=== PATIENT | female | born 1985 | race Caucasian/White ===

== ENCOUNTER → 2020-10-22 08:59 | Outpatient (BNVA) | payer OTHER, SELFPAY | PROVIDERS: Visit Provider Advanced Practice Midwife | DX: Z30.42 Encounter for surveillance of injectable contraceptive (principal) | CPT/HCPCS: 96372; 99211; J1050 ==

== ENCOUNTER 2020-12-04 04:44 | Emergency (ER) | payer OTHER, SELFPAY ==
[2020-12-04 04:58] VITALS: BP 151/96; PULSE 113; RESP 18; TEMP 36.9; O2SAT 100; BMI 33.0
--- NOTE | 2020-12-04 05:05 | PC.NURSE ---
Pt changed into hospital gown, assisted into POC, awaiting primary MD eval.
--- NOTE | 2020-12-04 05:19 | ED.GENADULT ---
HPI - General Adult General Chief complaint: General Medical Stated complaint: Swollen legs Time Seen by Provider: 12/04/20 05:05 Source: patient Mode of arrival: ambulatory Limitations: no limitations History of Present Illness HPI narrative: Patient comes emergency room complaining of right-sided leg swelling. Patient states she has chronic left leg swelling, she has been seen by Dr. Martinez and has been told that her condition is not vascular. Furthermore, patient is complaining of a rash that is in both upper and lower extremities, which has been present for several years and has been treated multiple times with antibiotics, but does not have a diagnosis for this rash. Patient's complaint today is increased right leg swelling, which started 1 week ago. MD complaint: Right leg swelling Related Data Home Medications Medication Instructions Recorded Confirmed clindamycin phosphate 1 % lotion 1 applic TOPICAL BID 09/09/20 10/22/20 medroxyprogesterone 150 mg/mL mg IM 09/09/20 10/22/20 intramuscular suspension mometasone 0.1 % topical ointment TOPICAL 09/09/20 10/22/20 Previous Rx's Medication Instructions Recorded medroxyprogesterone 150 mg/mL 150 mg IM Q12W 84 Days #1 ml 10/13/20 intramuscular suspension dicyclomine 10 mg capsule 10 mg PO BID 90 Days #180 cap 10/22/20 loperamide 2 mg capsule 2 mg PO TID PRN 90 Days #270 cap 10/22/20 omeprazole 40 mg capsule,delayed 40 mg PO DAILY 90 Days #90 cap 10/22/20 release cyclobenzaprine 10 mg tablet 10 mg PO BEDTIME PRN 20 Days #20 11/05/20 tab doxycycline hyclate 100 mg tablet 100 mg PO BID 10 Days #20 tab 11/05/20 Allergies Allergy/AdvReac Type Severity Reaction Status Date / Time adhesive [ADHESIVE] Allergy Intermediate RED RASH Verified 09/09/20 09:34 nickel [NICKEL] Allergy Intermediate RASH Verified 09/09/20 09:34 tramadol [TRAMADOL] Allergy Intermediate NAUSEA & Verified 09/09/20 09:34 VOMITING,RASH acetaminophen [From VICODIN] Allergy Unknown RASH Verified 09/09/20 09:34 hydrocodone [From VICODIN] Allergy Unknown RASH Verified 09/09/20 09:34 naproxen [NAPROXEN] Allergy Unknown GI Verified 10/27/20 09:34 UPSET,RASH Nickel Allergy Unknown rash Verified 09/09/20 09:34 Adhesive Allergy Unknown rash Uncoded 06/24/20 00:00 adhesive tape Allergy Unknown rash Uncoded 05/20/20 00:00 MOLD TREES WEEDS cats DOGS Allergy Unknown PER Uncoded 07/31/20 16:08 ALLERGY TESTING Mold, weeds, trees, cats, Allergy Unknown per Uncoded 05/20/20 00:00 dogs allergy testing Naproxen Allergy Unknown rash Uncoded 05/20/20 00:00 Tramadol Allergy Unknown rash Uncoded 05/20/20 00:00 vicodin Allergy Unknown rash Uncoded 05/20/20 00:00 Review of Systems Review of Systems: Constitutional : No Weight loss, No Fever, No Chills, No Night Sweats, No Fatigue, No Malaise ENT/Mouth : No Hearing loss, No Ear Pain, No Nasal Congestion, No Sinus Pain, No Hoarseness, No sore throat, No Rhinorrhea, No Swallowing Difficulty Eyes: No Eye Pain, No Swelling, No Redness, No Foreign Body, No Discharge, No Vision Changes Cardiovascular : No Chest Pain, No SOB, No Dyspnea on Exertion, No Orthopnea, No Edema, No Palpitations Respiratory : No Cough, No Sputum, No Wheezing, No Smoke Exposure, No Dyspnea Gastrointestinal : No Nausea, No Vomiting, No Diarrhea, No Constipation, No abdominal Pain, No Hematochezia, No Melena Genitourinary : no irregular bleeding, No Dysuria, No Urinary Frequency, No Hematuria, No Urinary Incontinence, No Urgency, No Flank Pain, No Urinary Flow Changes, No Hesitancy Musculoskeletal : No joint pain, No Myalgias, complaining of 1 week of right lower extremity swelling Skin : Chronic rash in upper and lower extremities Neuro : No Weakness, No Numbness, No Paresthesias, No Loss of Consciousness, No Dizziness, No Headache Psych : No Anxiety/Panic, No Depression, No SI/HI/AH/VH, No Social Issues, Heme/Lymph: No Bruising, No Bleeding,No Lymphadenopathy Endocrine : No Polyuria, No Polydipsia, No Temperature Intolerance PMFSH Past Medical History Surgical History H/O removal of cyst History of esophagogastroduodenoscopy (EGD) Hx of adenoidectomy Hx of colonoscopy Hx of sinus surgery Hx of tympanostomy Neoplasia S/P arthroscopic surgery of left knee Family History Family History Father No problems noted. Mother HTN (hypertension) Sister No problems noted. Sister No problems noted. Sister No problems noted. Sister No problems noted. Sister No problems noted. Sister No problems noted. Sister No problems noted. Daughter No problems noted. Social History Social History Alcohol intake: current Alcohol intake frequency: holidays/special occasions only Smoking Status: Former smoker Advance Directives: No Physical Exam Vital Signs: Vital Signs: Last Vital Signs Temp 98.4 F 12/04/20 04:58 Pulse 113 H 12/04/20 04:58 Resp 18 12/04/20 04:58 BP 151/96 H 12/04/20 04:58 Pulse Ox 100 12/04/20 04:58 Body Mass Index 33.0 Appearance: Alert. Oriented X3. No acute distress. Eyes: Pupils equal, round and reactive to light. ENT: Pharynx normal. Neck: Normal inspection. Neck supple. No lymph nodes noted. No crepitus CVS: Normal heart rate and rhythm. Pulses normal. Normal S1 and S2 Respiratory: No respiratory distress. Breath sounds normal. No Wheezing. No rales Abdomen: Soft and nontender. No rigidity. No distention. good BS x4 Skin: Patient has multiple small eschars in both upper and lower extremities, patient states this is part of her chronic rash. No signs of cellulitis Extremities: Complaining of chronic left lower extremity swelling, complaining of new onset right lower extremity swelling Neuro: Oriented X 3. No motor deficit. No sensory deficit. Moving all extermities. No slurred speech. Course Course Course Narrative: Patient changed her story, now states that her left leg has been normal after she saw Dr. Martinez back in August, and now it is swollen again. I discussed with the patient that we will go ahead and do an ultrasound of both legs. At this time, patient is stable, sign-out given to Dr. Velázquez. Patient's rash is chronic. Patient likely to be discharged home. TSH pending Medical Decision Making Lab Data Result diagrams: 12/04/20 05:35 12/04/20 05:35 Labs: Lab Results 12/04/20 12/04/20 Range/Units 05:35 05:35 WBC 7.5 (4.8-10.8) X10*3/uL RBC 4.64 (4.20-5.50) X10*6/uL Hgb 12.9 (12.0-16.0) g/dl Hct 39.4 (37-47) % MCV 84.9 (80-98) fL MCH 27.8 (27.0-33.0) pg MCHC 32.7 (31.0-35.0) g/dl RDW 12.2 (11.0-16.0) % Plt Count 287 (160-400) X10*3/uL MPV 10.1 (9.4-12.3) fL Immature Gran % (Auto) 0.1 (0.0-0.4) % Neut % (Auto) 59.8 (45-73) % Lymph % (Auto) 25.5 (20-40) % [place] % (Auto) 11.3 H (2-11) % Eos % (Auto) 2.8 (0-4) % Baso % (Auto) 0.5 (0-2) % Lymph # (Auto) 1.9 (1.2-4.9) X10*3/uL [place] # (Auto) 0.8 (0.1-1.2) X10*3/uL Eos # (Auto) 0.2 (0.0-0.4) X10*3/uL Baso # (Auto) 0.0 (0.0-0.2) X10*3/uL Abs Immat Gran (auto) 0.01 (0.00-0.03) X10*3/uL Absolute Neuts (auto) 4.5 (2.0-8.3) X10*3/uL Absolute Nucleated RBC 0.000 (0.0-0.012) X10*3/uL Nucleated RBC % (auto) 0.0 (0.0-0.2) /100WBC Sodium 137 (135-145) mmol/L Potassium 4.3 (3.3-5.1) mmol/l Chloride 105 (96-108) mmol/L Carbon Dioxide 21 L (22-29) mmol/L Anion Gap 15 (12-20) BUN 14 (9-16) mg/dL Creatinine 1.08 (0.5-1.4) mg/dL Estim Creat Clear Calc 72.8 Estimated GFR 58 Random Glucose 88 (60-115) mg/dL Calcium 9.2 (8.4-10.2) mg/dL Discharge Plan Discharge Clinical Impression: Swelling of lower extremity Patient Disposition: Home, Self-Care Instructions: Leg Edema (ED) Additional Instructions: Please follow-up with your primary care physician tomorrow. If you have any worsening or new symptoms, please return to the emergency room or call 911 Prescriptions: No Action medroxyprogesterone [Depo-Provera] 150 mg/mL suspension 150 mg IM Q12W 84 Days Qty: 1 RF: 0 doxycycline hyclate 100 mg tablet 100 mg PO BID 10 Days Qty: 20 RF: 0 cyclobenzaprine 10 mg tablet 10 mg PO BEDTIME PRN (Reason: muscle spasm) 20 Days Qty: 20 RF: 0 omeprazole 40 mg capsule,delayed release(DR/EC) 40 mg PO DAILY 90 Days Qty: 90 RF: 0 loperamide 2 mg capsule 2 mg PO TID PRN (Reason: loose stool) 90 Days Qty: 270 RF: 0 dicyclomine 10 mg capsule 10 mg PO BID 90 Days Qty: 180 RF: 0 medroxyprogesterone 150 mg/mL suspension IM RF: 0 clindamycin phosphate 1 % lotion 1 applic topical BID RF: 0 mometasone 0.1 % ointment topical RF: 0
[2020-12-04 05:41] LABS: Basophils Percent Auto 0.5 % (0-2); Eosinophils Absolute Auto 0.2 X10*3/uL (0.0-0.4); Eosinophils Percent Auto 2.8 % (0-4); Hematocrit 39.4 % (37-47); Hemoglobin 12.9 g/dl (12.0-16.0); Imm Gran Abs Auto 0.01 X10*3/uL (0.00-0.03); Imm Gran Pct Auto 0.1 % (0.0-0.4); Lymphocytes Absolute Auto 1.9 X10*3/uL (1.2-4.9); Lymphocytes Percent Auto 25.5 % (20-40); MANUAL DIFF FLAG NO; Mean Corpuscular HGB Conc 32.7 g/dl (31.0-35.0); Mean Corpuscular Hemoglobin 27.8 pg (27.0-33.0); Mean Corpuscular Volume 84.9 fL (80-98); Mean Platelet Volume 10.1 fL (9.4-12.3); Monocytes Absolute Auto 0.8 X10*3/uL (0.1-1.2); Monocytes Percent Auto 11.3 % (2-11); Neutrophils Absolute Auto 4.5 X10*3/uL (2.0-8.3); Neutrophils Percent Auto 59.8 % (45-73); Platelet Count 287 X10*3/uL (160-400); Red Blood Count 4.64 X10*6/uL (4.20-5.50); Red Cell Distribution Width 12.2 % (11.0-16.0); White Blood Count 7.5 X10*3/uL (4.8-10.8)
--- NOTE | 2020-12-04 05:50 | PC.NURSE ---
central supply tech at bedside obtaining labs.
[2020-12-04 06:00] VITALS: BP 110/55; PULSE 93; RESP 16; TEMP 37; O2SAT 100
[2020-12-04 06:13] LABS: Anion Gap 15 (12-20); Blood Urea Nitrogen 14 mg/dL (9-16); Calcium 9.2 mg/dL (8.4-10.2); Carbon Dioxide 21 mmol/L (22-29); Chloride 105 mmol/L (96-108); Creatinine Clr Calc Pharmacy 72.8; Estimated Glomerular Filt Rate 58; Glucose Random 88 mg/dL (60-115); Potassium 4.3 mmol/l (3.3-5.1); Sodium 137 mmol/L (135-145)
--- NOTE | 2020-12-04 06:28 | US_ITS ---
EXAMINATION: US VENOUS ULTRASOUND WITH DOPPLER LOWER EXTREMITY, BILATERAL CLINICAL INFORMATION: Bilateral leg swelling. COMPARISON: 08/06/2020 TECHNIQUE: Ultrasound of the deep veins is performed from the hip to the calf with compression sonography and color and pulse Doppler assessment. Spectral analysis with color-flow imaging is performed. FINDINGS: The common femoral vein is compressible and exhibits a normal phasic waveform, bilaterally; this suggests that the iliac veins are widely patent above. Within each proximal thigh, the visualized profunda femoris vein is patent. The visualized greater saphenous veins and saphenofemoral junctions are normal. Superficial femoral vein is patent in the proximal, mid and distal aspect of each thigh. Popliteal vein appears normal to the level of the trifurcation, bilaterally, and the visualized tibial and peroneal veins of each calf are normal. No evidence of Hdz's cyst. US/US venous duplex LE BI IMPRESSION: No evidence of deep vein thrombosis in either lower extremity.
[2020-12-04 06:45] LABS: TSH reflex Free T4 0.96 mIU/mL (0.32-4.0)
--- NOTE | 2020-12-04 06:51 | PC.NURSE ---
IV established, IVF hung however discontinued fluids. Pt aware of plan for U/S. Pt requesting Tylenol for a HENRY.
--- NOTE | 2020-12-04 07:11 | PC.NURSE ---
REPORT TAKEN FROM PAYTON CANCHOLA. PT LAYING ON STRETCHER AT TME OF ASSESSMENT. HAS RASH TO BILATERAL LOWER LEGS WITH SCABS. RASH IS CHRONIC, HAS HAD FOR YEARS. PT REPORTS SHE FOLLOW INSURANCE JOB TITLES BUT LEGS BEGAN GETTING WORSE PAST WEEK. PT AWARE OF PLAN TO HAVE ULTRASOUND.
--- NOTE | 2020-12-04 08:42 | ED.GENADULT ---
HPI - General Adult General Chief complaint: General Medical Stated complaint: Swollen legs Time Seen by Provider: 12/04/20 05:05 Source: patient Mode of arrival: ambulatory Limitations: no limitations History of Present Illness HPI narrative: Please see my addendum on Dr. Reena Sethi note for this patient. Related Data Home Medications Medication Instructions Recorded Confirmed clindamycin phosphate 1 % lotion 1 applic TOPICAL BID 09/09/20 10/22/20 medroxyprogesterone 150 mg/mL mg IM 09/09/20 10/22/20 intramuscular suspension mometasone 0.1 % topical ointment TOPICAL 09/09/20 10/22/20 Previous Rx's Medication Instructions Recorded medroxyprogesterone 150 mg/mL 150 mg IM Q12W 84 Days #1 ml 10/13/20 intramuscular suspension dicyclomine 10 mg capsule 10 mg PO BID 90 Days #180 cap 10/22/20 loperamide 2 mg capsule 2 mg PO TID PRN 90 Days #270 cap 10/22/20 omeprazole 40 mg capsule,delayed 40 mg PO DAILY 90 Days #90 cap 10/22/20 release cyclobenzaprine 10 mg tablet 10 mg PO BEDTIME PRN 20 Days #20 11/05/20 tab doxycycline hyclate 100 mg tablet 100 mg PO BID 10 Days #20 tab 11/05/20 doxycycline hyclate 100 mg PO BID 10 Days #20 tab 12/04/20 furosemide 20 mg PO DAILY 10 Days #10 tab 12/04/20 Allergies Allergy/AdvReac Type Severity Reaction Status Date / Time adhesive [ADHESIVE] Allergy Intermediate RED RASH Verified 09/09/20 09:34 nickel [NICKEL] Allergy Intermediate RASH Verified 09/09/20 09:34 tramadol [TRAMADOL] Allergy Intermediate NAUSEA & Verified 09/09/20 09:34 VOMITING,RASH acetaminophen [From VICODIN] Allergy Unknown RASH Verified 09/09/20 09:34 hydrocodone [From VICODIN] Allergy Unknown RASH Verified 09/09/20 09:34 naproxen [NAPROXEN] Allergy Unknown GI Verified 09/09/20 09:34 UPSET,RASH Nickel Allergy Unknown rash Verified 09/09/20 09:34 Adhesive Allergy Unknown rash Uncoded 06/24/20 00:00 adhesive tape Allergy Unknown rash Uncoded 05/20/20 00:00 MOLD TREES WEEDS cats DOGS Allergy Unknown PER Uncoded 07/31/20 16:08 ALLERGY TESTING Mold, weeds, trees, cats, Allergy Unknown per Uncoded 05/20/20 00:00 dogs allergy testing Naproxen Allergy Unknown rash Uncoded 05/20/20 00:00 Tramadol Allergy Unknown rash Uncoded 05/20/20 00:00 vicodin Allergy Unknown rash Uncoded 05/20/20 00:00 [facility] Past Medical History Surgical History H/O removal of cyst History of esophagogastroduodenoscopy (EGD) Hx of adenoidectomy Hx of colonoscopy Hx of sinus surgery Hx of tympanostomy Neoplasia S/P arthroscopic surgery of left knee Family History Family History Father No problems noted. Mother HTN (hypertension) Sister No problems noted. Sister No problems noted. Sister No problems noted. Sister No problems noted. Sister No problems noted. Sister No problems noted. Sister No problems noted. Daughter No problems noted. Social History Social History Alcohol intake: current Alcohol intake frequency: holidays/special occasions only Smoking Status: Former smoker Advance Directives: No Physical Exam Vital Signs: Vital Signs: Last Vital Signs Temp 98.6 F 12/04/20 06:00 Pulse 93 12/04/20 06:00 Resp 16 12/04/20 06:00 BP 110/55 L 12/04/20 06:00 Pulse Ox 100 12/04/20 06:00 Body Mass Index 33.0 Medical Decision Making Lab Data Result diagrams: 12/04/20 05:35 12/04/20 05:35 Labs: Lab Results 12/04/20 12/04/20 Range/Units 05:35 05:35 WBC 7.5 (4.8-10.8) X10*3/uL RBC 4.64 (4.20-5.50) X10*6/uL Hgb 12.9 (12.0-16.0) g/dl Hct 39.4 (37-47) % MCV 84.9 (80-98) fL MCH 27.8 (27.0-33.0) pg MCHC 32.7 (31.0-35.0) g/dl RDW 12.2 (11.0-16.0) % Plt Count 287 (160-400) X10*3/uL MPV 10.1 (9.4-12.3) fL Immature Gran % (Auto) 0.1 (0.0-0.4) % Neut % (Auto) 59.8 (45-73) % Lymph % (Auto) 25.5 (20-40) % [place] % (Auto) 11.3 H (2-11) % Eos % (Auto) 2.8 (0-4) % Baso % (Auto) 0.5 (0-2) % Lymph # (Auto) 1.9 (1.2-4.9) X10*3/uL [place] # (Auto) 0.8 (0.1-1.2) X10*3/uL Eos # (Auto) 0.2 (0.0-0.4) X10*3/uL Baso # (Auto) 0.0 (0.0-0.2) X10*3/uL Abs Immat Gran (auto) 0.01 (0.00-0.03) X10*3/uL Absolute Neuts (auto) 4.5 (2.0-8.3) X10*3/uL Absolute Nucleated RBC 0.000 (0.0-0.012) X10*3/uL Nucleated RBC % (auto) 0.0 (0.0-0.2) /100WBC Sodium 137 (135-145) mmol/L Potassium 4.3 (3.3-5.1) mmol/l Chloride 105 (96-108) mmol/L Carbon Dioxide 21 L (22-29) mmol/L Anion Gap 15 (12-20) BUN 14 (9-16) mg/dL Creatinine 1.08 (0.5-1.4) mg/dL Estim Creat Clear Calc 72.8 Estimated GFR 58 Random Glucose 88 (60-115) mg/dL Calcium 9.2 (8.4-10.2) mg/dL TSH 0.96 (0.32-4.0) mIU/mL Discharge Plan Discharge Clinical Impression: Swelling of lower extremity, Cellulitis Patient Disposition: Home, Self-Care Instructions: Leg Edema (ED) Additional Instructions: The Doppler ultrasound of your legs revealed no blood clots. Based on your examination, I believe the you have a bacterial skin infection of your right leg. Take doxycycline 100 mg pills, 1 pill twice a day for 10 days. Keep your leg elevated to help the fluid drained out of your leg. Use a heating pad on low for 10-15 minutes 4 to 6 times a day to help increase the blood flow to the leg which will help the healing process. Take Lasix (furosemide) 20 mg pills, 1 pill daily for 10 days. This medication will make you urinate for 4-6 hours after you take it. It is important to try to which she had a negative fluid balance while you taking Lasix so try to decrease the amount of fluid to drink, only drink when your thirsty. Follow the cellulitis (skin infection) instructions. Follow-up with your doctor in 2 days. Please return to the emergency department if your symptoms get worse or if you develop any symptoms that are concerning to you. Prescriptions: New doxycycline hyclate 100 mg tablet 100 mg PO BID 10 Days Qty: 20 RF: 0 furosemide 20 mg tablet 20 mg PO DAILY 10 Days Qty: 10 RF: 0 No Action medroxyprogesterone [Depo-Provera] 150 mg/mL suspension 150 mg IM Q12W 84 Days Qty: 1 RF: 0 doxycycline hyclate 100 mg tablet 100 mg PO BID 10 Days Qty: 20 RF: 0 cyclobenzaprine 10 mg tablet 10 mg PO BEDTIME PRN (Reason: muscle spasm) 20 Days Qty: 20 RF: 0 omeprazole 40 mg capsule,delayed release(DR/EC) 40 mg PO DAILY 90 Days Qty: 90 RF: 0 loperamide 2 mg capsule 2 mg PO TID PRN (Reason: loose stool) 90 Days Qty: 270 RF: 0 dicyclomine 10 mg capsule 10 mg PO BID 90 Days Qty: 180 RF: 0 medroxyprogesterone 150 mg/mL suspension IM RF: 0 clindamycin phosphate 1 % lotion 1 applic topical BID RF: 0 mometasone 0.1 % ointment topical RF: 0 Interventions: ED Discharge Assessment Last Done: 12/04/20 09:01 Discharge Date/Time: 12/04/20 09:01
== END 2020-12-04 09:01 | disposition home or self-care (01) ==
PROVIDERS: Emergency Medicine; Emergency Provider Emergency Medicine Emergency Medical Services; PCP Nurse Practitioner Family
DX: R60.0 Localized edema (principal); L03.116 Cellulitis of left lower limb; L03.115 Cellulitis of right lower limb; Z87.891 Personal history of nicotine dependence; Z79.899 Other long term (current) drug therapy
CPT/HCPCS: 36415; 80048; 84443; 85025; 93970; 96360; 99284

== ENCOUNTER 2020-12-22 12:40 | Outpatient (REF) | payer OTHER, SELFPAY ==
[2020-12-22 13:48] LABS: MANUAL DIFF FLAG NO
[2020-12-22 13:54] LABS: Basophils Absolute Auto 0.1 X10*3/uL (0.0-0.2); Basophils Percent Auto 0.6 % (0-2); Eosinophils Absolute Auto 0.4 X10*3/uL (0.0-0.4); Eosinophils Percent Auto 4.7 % (0-4); Hematocrit 37.2 % (37-47); Hemoglobin 12.4 g/dl (12.0-16.0); Imm Gran Abs Auto 0.03 X10*3/uL (0.00-0.03); Imm Gran Pct Auto 0.3 % (0.0-0.4); Lymphocytes Absolute Auto 1.5 X10*3/uL (1.2-4.9); Lymphocytes Percent Auto 17.3 % (20-40); Mean Corpuscular HGB Conc 33.3 g/dl (31.0-35.0); Mean Corpuscular Hemoglobin 27.9 pg (27.0-33.0); Mean Corpuscular Volume 83.6 fL (80-98); Mean Platelet Volume 11.4 fL (9.4-12.3); Monocytes Absolute Auto 1.1 X10*3/uL (0.1-1.2); Monocytes Percent Auto 12.4 % (2-11); Neutrophils Absolute Auto 5.6 X10*3/uL (2.0-8.3); Neutrophils Percent Auto 64.7 % (45-73); Platelet Count 335 X10*3/uL (160-400); Red Blood Count 4.45 X10*6/uL (4.20-5.50); Red Cell Distribution Width 12.4 % (11.0-16.0); White Blood Count 8.6 X10*3/uL (4.8-10.8)
[2020-12-22 14:30] LABS: Alanine Aminotransferase 18 U/L (0-31); Albumin Level 4.1 g/dL (3.5-5.0); Alkaline Phosphatase 68 U/L (39-117); Anion Gap 16 (12-20); Aspartate Amino Transferase 22 U/L (5-31); Bilirubin Total 0.4 mg/dL (0.0-1.0); Blood Urea Nitrogen 9 mg/dL (9-16); Calcium 8.8 mg/dL (8.4-10.2); Carbon Dioxide 28 mmol/L (22-29); Chloride 100 mmol/L (96-108); Estimated Glomerular Filt Rate > 60; Glucose Random 93 mg/dL (60-115); Potassium 3.5 mmol/L (3.3-5.1); Sodium 140 mmol/L (135-145); Total Protein 6.9 g/dL (6.5-8.0)
[2020-12-22 14:45] LABS: TSH reflex Free T4 0.65 uIU/mL (0.32-4.0)
[2020-12-24 04:47] LABS: DHEA Sulfate 169 mcg/dL (23-266)
[2020-12-26 20:32] LABS: DHEA, Unconjugated 288 ng/dL
[2020-12-27 08:48] LABS: Testosterone, Free 1.2 pg/mL (0.1-6.4); Testosterone, Total 21 ng/dL (2-45)
== END 2020-12-22 12:41 | disposition home or self-care (01) ==
LOC: HO.HMGCLDS 12:40
PROVIDERS: PCP Nurse Practitioner Family; Visit Provider Nurse Practitioner Family
DX: R63.4 Abnormal weight loss (principal); L65.9 Nonscarring hair loss, unspecified
CPT/HCPCS: 36415; 80053; 82626; 82627; 84402; 84403; 84443; 85025

== ENCOUNTER → 2021-01-12 10:53 | Outpatient (BNVA) | payer OTHER, SELFPAY | PROVIDERS: PCP Nurse Practitioner Family; Visit Provider Advanced Practice Midwife | DX: Z30.42 Encounter for surveillance of injectable contraceptive (principal) | CPT/HCPCS: 96372; 99211 ==

== ENCOUNTER 2021-02-04 00:25 | Emergency (ER) | payer OTHER, SELFPAY ==
--- NOTE | ~2021-02-04 | CT_ITS ---
EXAMINATIONS: CT HEAD WITHOUT CONTRAST AND CT CERVICAL SPINE WITHOUT CONTRAST CLINICAL INFORMATION: Pain. Trauma. Fall. Intoxicated. COMPARISON: 04/21/2018 report only. TECHNIQUE: Contiguous helical images of the brain were obtained without IV contrast. Contiguous helical images of the cervical spine were obtained without IV contrast. Multiplanar reconstructions were performed. DLP: 517 mGy-cm. FINDINGS: There are no pathologic extra-axial fluid collections. The lateral, third, fourth ventricles are nondilated and concordant with the appearance of the sulci. There is no evidence for acute intraparenchymal hemorrhage or infarct. There is neither mass nor mass effect. There is no shift of midline structures. The paranasal sinuses and mastoid air cells are clear. There are no osseous lesions. The cervical vertebra are in normal alignment. Disc heights and vertebral heights are well-preserved. There are no fractures. There is no prevertebral soft tissue swelling. There is no cervical lymphadenopathy. The visualized lung apices are clear. CT/CT cervical spine wo con IMPRESSION: No evidence for acute intracranial injury. No evidence for acute injury to the cervical spine. Automated exposure control (Care Dose) Adjustment of the mA and/or kv according to patient size (this includes techniques or standardized protocols for targeted exams where dose is matched to indication / reason for exam; i.e. extremities or head).
--- NOTE | ~2021-02-04 | CT_ITS ---
EXAMINATIONS: CT HEAD WITHOUT CONTRAST AND CT CERVICAL SPINE WITHOUT CONTRAST CLINICAL INFORMATION: Pain. Trauma. Fall. Intoxicated. COMPARISON: 04/21/2018 report only. TECHNIQUE: Contiguous helical images of the brain were obtained without IV contrast. Contiguous helical images of the cervical spine were obtained without IV contrast. Multiplanar reconstructions were performed. DLP: 517 mGy-cm. FINDINGS: There are no pathologic extra-axial fluid collections. The lateral, third, fourth ventricles are nondilated and concordant with the appearance of the sulci. There is no evidence for acute intraparenchymal hemorrhage or infarct. There is neither mass nor mass effect. There is no shift of midline structures. The paranasal sinuses and mastoid air cells are clear. There are no osseous lesions. The cervical vertebra are in normal alignment. Disc heights and vertebral heights are well-preserved. There are no fractures. There is no prevertebral soft tissue swelling. There is no cervical lymphadenopathy. The visualized lung apices are clear. CT/CT head/brain wo con IMPRESSION: No evidence for acute intracranial injury. No evidence for acute injury to the cervical spine. Automated exposure control (Care Dose) Adjustment of the mA and/or kv according to patient size (this includes techniques or standardized protocols for targeted exams where dose is matched to indication / reason for exam; i.e. extremities or head).
--- NOTE | ~2021-02-04 | XR_ITS ---
EXAMINATION: SHOULDER 3 VIEWS, LEFT CLINICAL INFORMATION: Pain. Fall. Intoxicated. COMPARISON: None. TECHNIQUE: AP views of the left shoulder were obtained in internal and external rotation. In addition, a Y view was obtained. FINDINGS: There are no fractures or dislocations. The humeral head is seated within a well-formed glenoid. The AC joint is intact. XR/XR shoulder LT min 2V IMPRESSION: Unremarkable left shoulder radiographs.
--- NOTE | 2021-02-04 00:44 | ED_ITS ---
HPI - General Adult General Chief complaint: ETOH/Substance Use Stated complaint: FALL Time Seen by Provider: 02/04/21 00:27 Source: patient and EMS Mode of arrival: EMS Limitations: no limitations History of Present Illness HPI narrative: Patient comes emergency room complaining of a fall. Patient states she tripped over a squared piece of toilet paper that was on the floor, states she may have hit her head in the sink. Also complaining of left shoulder pain. Patient denies using drugs or alcohol Related Data Home Medications Medication Instructions Recorded Confirmed clindamycin phosphate 1 % lotion 1 applic TOPICAL BID 09/09/20 12/22/20 medroxyprogesterone 150 mg/mL mg IM 09/09/20 12/22/20 intramuscular suspension mometasone 0.1 % topical ointment TOPICAL 09/09/20 12/22/20 paroxetine HCl 10 mg tablet 10 mg PO DAILY 12/22/20 12/22/20 Previous Rx's Medication Instructions Recorded dicyclomine 10 mg capsule 10 mg PO BID 90 Days #180 cap 10/22/20 loperamide 2 mg capsule 2 mg PO TID PRN 90 Days #270 cap 10/22/20 omeprazole 40 mg capsule,delayed 40 mg PO DAILY 90 Days #90 cap 10/22/20 release cyclobenzaprine 10 mg tablet 10 mg PO BEDTIME PRN 20 Days #20 11/05/20 tab quetiapine 50 mg tablet 50 mg PO BEDTIME #30 tab 12/12/20 medroxyprogesterone 150 mg/mL 150 mg IM Q12W 84 Days #1 ml 01/05/21 intramuscular suspension Allergies Allergy/AdvReac Type Severity Reaction Status Date / Time adhesive [ADHESIVE] Allergy Intermediate RED RASH Verified 12/22/20 12:24 nickel [NICKEL] Allergy Intermediate RASH Verified 12/22/20 12:24 tramadol [TRAMADOL] Allergy Intermediate NAUSEA & Verified 12/22/20 12:24 VOMITING,RASH acetaminophen [From VICODIN] Allergy Unknown RASH Verified 12/22/20 12:24 hydrocodone [From VICODIN] Allergy Unknown RASH Verified 12/22/20 12:24 naproxen [NAPROXEN] Allergy Unknown GI Verified 12/22/20 12:24 UPSET,RASH Nickel Allergy Unknown rash Verified 12/22/20 12:24 Adhesive Allergy Unknown rash Uncoded 12/22/20 12:24 adhesive tape Allergy Unknown rash Uncoded 12/22/20 12:24 MOLD TREES WEEDS cats DOGS Allergy Unknown PER Uncoded 12/22/20 12:24 ALLERGY TESTING Mold, weeds, trees, cats, Allergy Unknown per Uncoded 12/22/20 12:24 dogs allergy testing Naproxen Allergy Unknown rash Uncoded 12/22/20 12:24 Tramadol Allergy Unknown rash Uncoded 12/22/20 12:24 vicodin Allergy Unknown rash Uncoded 12/22/20 12:24 Review of Systems Review of Systems: Constitutional : No Weight loss, No Fever, No Chills, No Night Sweats, No Fatigue, No Malaise ENT/Mouth : No Hearing loss, No Ear Pain, No Nasal Congestion, No Sinus Pain, No Hoarseness, No sore throat, No Rhinorrhea, No Swallowing Difficulty Eyes: No Eye Pain, No Swelling, No Redness, No Foreign Body, No Discharge, No Vision Changes Cardiovascular : No Chest Pain, No SOB, No Dyspnea on Exertion, No Orthopnea, No Edema, No Palpitations Respiratory : No Cough, No Sputum, No Wheezing, No Smoke Exposure, No Dyspnea Gastrointestinal : No Nausea, No Vomiting, No Diarrhea, No Constipation, No abdominal Pain, No Hematochezia, No Melena Genitourinary : no irregular bleeding, No Dysuria, No Urinary Frequency, No Hem aturia, No Urinary Incontinence, No Urgency, No Flank Pain, No Urinary Flow Changes, No Hesitancy Musculoskeletal : No joint pain, No Myalgias, No Joint Swelling Skin : Complaining of cellulitis, states that she is on Bactrim and has a follow-up appointment coming up Neuro : No Weakness, No Numbness, No Paresthesias, No Loss of Consciousness, No Dizziness, No Headache, complaining of possible head injury Psych : No Anxiety/Panic, No Depression, No SI/HI/AH/VH, No Social Issues, Heme/Lymph: No Bruising, No Bleeding,No Lymphadenopathy Endocrine : No Polyuria, No Polydipsia, No Temperature Intolerance PMFSH Past Medical History Surgical History H/O removal of cyst History of esophagogastroduodenoscopy (EGD) Hx of adenoidectomy Hx of colonoscopy Hx of sinus surgery Hx of tympanostomy Neoplasia S/P arthroscopic surgery of left knee Family History Family History Father No problems noted. Mother HTN (hypertension) Sister No problems noted. Sister No problems noted. Sister No problems noted. Sister No problems noted. Sister No problems noted. Sister No problems noted. Sister No problems noted. Daughter No problems noted. Social History Social History Alcohol intake: current Alcohol intake frequency: holidays/special occasions only Smoking Status: Former smoker Advance Directives: No Advance Directives Information Provided: No Physical Exam Vital Signs: Vital Signs: Last Vital Signs Temp 98.4 F 02/04/21 00:48 Pulse 87 02/04/21 00:48 Resp 16 02/04/21 00:48 BP 110/66 02/04/21 00:48 Pulse Ox 97 02/04/21 00:48 Body Mass Index 30.2 Appearance: Alert. Oriented X3. No acute distress. Seems intoxicated Eyes: Pupils equal, round and reactive to light. ENT: Pharynx normal. Neck: Normal inspection. Neck supple. No lymph nodes noted. No crepitus CVS: Normal heart rate and rhythm. Pulses normal. Normal S1 and S2 Respiratory: No respiratory distress. Breath sounds normal. No Wheezing. No rales Abdomen: Soft and nontender. No rigidity. No distention. good BS x4 Skin: Skin warm and dry. Multiple scabs in upper extremities, some healing, some are minimally bleeding from continues picking, erythematous skin in upper and lower extremities, per patient it is improving with the current antibiotic she is taking Extremities: Bilateral lower extremity edema, chronic, per patient at baseline, complaining of left shoulder pain, able to flex extend arm and shoulder able to abduct and abduct without difficulty Neuro: Oriented X 3. Likely intoxicated, No motor deficit. No sensory deficit. Moving all extermities. No slurred speech. Course Course Course Narrative: Patient refused to give urine per nursing, patient awake, alert, steady gait, seen walking to the bathroom and around the ED. Patient's head CT and neck CT do not show any acute pathology. When I went to patient's bedside, she was missing, then I was informed by the patient's nurse that the patient eloped A few minutes later, I was informed that the patient was in the waiting room requesting discharge papers. Information was printed out for the patient, ford schmidt I did not talk to the patient before she left the ED, therefore patient eloped Later, I was informed by the front staff and the charge nurse, that the patient was accusing me of calling the butane compressor operator on her approximately 1 year ago, because she falsified the prescription on the amount of narcotics being prescribed. Of note, I have never had such a conversation/encounter with the patient in the [facility], she is confusing me with another provider Medical Decision Making Imaging Data Head and cervical spine CT: Radiologist's impression: FINDINGS: There are no pathologic extra-axial fluid collections. The lateral, third, fourth ventricles are nondilated and concordant with the appearance of the sulci. There is no evidence for acute intraparenchymal hemorrhage or infarct. There is neither mass nor mass effect. There is no shift of midline structures. The paranasal sinuses and mastoid air cells are clear. There are no osseous lesions. The cervical vertebra are in normal alignment. Disc heights and vertebral heights are well-preserved. There are no fractures. There is no prevertebral soft tissue swelling. There is no cervical lymphadenopathy. The visualized lung apices are clear. CT/CT cervical spine wo con IMPRESSION: No evidence for acute intracranial injury. No evidence for acute injury to the cervical spine. Shoulder x-ray: Radiologist's impression: FINDINGS: There are no fractures or dislocations. The humeral head is seated within a well-formed glenoid. The AC joint is intact. XR/XR shoulder LT min 2V IMPRESSION: Unremarkable left shoulder radiographs. Discharge Plan Discharge Clinical Impression: Head injury Qualifiers: Encounter type: initial encounter Qualified Code(s): S09.90XA - Unspecified injury of head, initial encounter Patient Disposition: Elopement Instructions: Head Injury (ED) Additional Instructions: Please follow-up with your primary care physician tomorrow. If you have any worsening or new symptoms, please return to the emergency room or call 911 Prescriptions: No Action cyclobenzaprine 10 mg tablet 10 mg PO BEDTIME PRN (Reason: muscle spasm) 20 Days Qty: 20 RF: 0 medroxyprogesterone [Depo-Provera] 150 mg/mL suspension 150 mg IM Q12W 84 Days Qty: 1 RF: 0 omeprazole 40 mg capsule,delayed release(DR/EC) 40 mg PO DAILY 90 Days Qty: 90 RF: 0 loperamide 2 mg capsule 2 mg PO TID PRN (Reason: loose stool) 90 Days Qty: 270 RF: 0 dicyclomine 10 mg capsule 10 mg PO BID 90 Days Qty: 180 RF: 0 paroxetine HCl 10 mg tablet 10 mg PO DAILY RF: 0 quetiapine [Seroquel] 50 mg tablet 50 mg PO BEDTIME Qty: 30 RF: 0 medroxyprogesterone 150 mg/mL suspension IM RF: 0 clindamycin phosphate 1 % lotion 1 applic topical BID RF: 0 mometasone 0.1 % ointment topical RF: 0 Interventions: ED Discharge Assessment Last Done: 02/04/21 02:53
[2021-02-04 00:48] VITALS: BP 110/66; PULSE 87; RESP 16; TEMP 36.9; O2SAT 97; BMI 30.2
--- NOTE | 2021-02-04 00:53 | PC.NURSE ---
PT TO ED VIA AMBULANCE WITH C/O LIP AND LEFT SHOULDER PAIN AFTER FALLING FROM TRIPPING ON TOILET PAPER. PT HAS MULT SCABS AND MARKING ON JEFF ARMS. PT DENIES DRUG/ETOH USE TONIGHT. MD AT BEDSIDE.
--- NOTE | 2021-02-04 01:46 | PC.NURSE ---
PT TO CT AMBULATORY.
--- NOTE | 2021-02-04 02:25 | PC.NURSE ---
PT UP TO RESTROOM WITH STEADY EVEN GAIT. PT DOES NOT APPEAR INTOXICATED. PT ON PHONE CONVERSING WITH A FRIEND AT THIS TIME W/O SLURRED SPEECH. PT REQUESTING RESULTS FROM X-RAY AND COMPLAINING NO ONE IS TELLING ME THE RESULTS. AWARE.
--- NOTE | 2021-02-04 02:48 | PC.NURSE ---
PT ELOPED TO WR AT THIS TIME. DR. KHOURY AWARE AND [facility] NURSE AWARE OF PT LEAVING.
--- NOTE | 2021-02-04 02:56 | PC.NURSE ---
Ksenia CANCHOLA preformed d/c teaching while patient was ambulating to waiting room. No questions regarding d/c teaching.
--- NOTE | 2021-02-04 03:13 | PC.NURSE ---
This RN in [facility] by [facility] and patient observed to ambulate towards the exit without mask in place. This RN and other staff asked if the patient was okay and/or required assistance. Pt began to report that she was kicked out and told to just leave without discharge paperwork and/or speaking with MD. Staff attempted to apologize for the member's experience and provide education regarding ED flow and MD communication. The pt appeared to disregard this RN's reports and continued to explain how unhappy she was with her care and began to state how she just knows that was judging me as she believed that the Dr mckeon was the same provider who 'called the railroad car repairman' on her before. Staff was able to provide the patient with her discharge paperwork and the patient was noted to have an even and steady gait while carrying a large work bag . Pt was without distress noted at time of dc.
== END 2021-02-04 04:12 | disposition left against medical advice (07) ==
PROVIDERS: Emergency Provider Emergency Medicine
DX: S09.90XA Unspecified injury of head, initial encounter (principal); W01.0XXA Fall on same level from slipping, tripping and stumbling without subsequent striking against object, initial encounter; M25.512 Pain in left shoulder; Y93.89 Activity, other specified; Y92.012 Bathroom of single-family (private) house as the place of occurrence of the external cause; Y99.9 Unspecified external cause status
CPT/HCPCS: 70450; 72125; 73030; 99283; 99284

== ENCOUNTER 2021-03-19 14:55 | Outpatient (REF) | payer OTHER, SELFPAY ==
[2021-03-19 16:34] LABS: MANUAL DIFF FLAG NO
[2021-03-19 16:41] LABS: Basophils Absolute Auto 0.1 X10*3/uL (0.0-0.2); Basophils Percent Auto 0.7 % (0-2); Eosinophils Absolute Auto 0.2 X10*3/uL (0.0-0.4); Eosinophils Percent Auto 2.4 % (0-4); Hematocrit 40.3 % (37-47); Imm Gran Abs Auto 0.02 X10*3/uL (0.00-0.03); Imm Gran Pct Auto 0.3 % (0.0-0.4); Lymphocytes Absolute Auto 2.4 X10*3/uL (1.2-4.9); Lymphocytes Percent Auto 33.3 % (20-40); Mean Corpuscular HGB Conc 32.3 g/dl (31.0-35.0); Mean Corpuscular Hemoglobin 26.6 pg (27.0-33.0); Mean Corpuscular Volume 82.6 fL (80-98); Mean Platelet Volume 12.1 fL (9.4-12.3); Monocytes Absolute Auto 0.7 X10*3/uL (0.1-1.2); Monocytes Percent Auto 9.8 % (2-11); Neutrophils Absolute Auto 3.8 X10*3/uL (2.0-8.3); Neutrophils Percent Auto 53.5 % (45-73); Platelet Count 365 X10*3/uL (160-400); Red Blood Count 4.88 X10*6/uL (4.20-5.50); Red Cell Distribution Width 13.7 % (11.0-16.0); White Blood Count 7.1 X10*3/uL (4.8-10.8)
[2021-03-19 17:06] LABS: Alanine Aminotransferase 15 U/L (0-31); Albumin Level 3.8 g/dL (3.5-5.0); Alkaline Phosphatase 67 U/L (39-117); Anion Gap 14 (12-20); Aspartate Amino Transferase 19 U/L (5-31); Bilirubin Total 0.4 mg/dL (0.0-1.0); Blood Urea Nitrogen 9 mg/dL (9-16); Calcium 9.1 mg/dL (8.4-10.2); Carbon Dioxide 33 mmol/L (22-29); Chloride 96 mmol/L (96-108); Estimated Glomerular Filt Rate > 60; Glucose Random 91 mg/dL (60-115); Potassium 3.7 mmol/L (3.3-5.1); Sodium 139 mmol/L (135-145); Total Protein 7.1 g/dL (6.5-8.0)
== END 2021-03-19 14:56 | disposition home or self-care (01) ==
LOC: HO.HMGCLDS 14:55
PROVIDERS: PCP Nurse Practitioner Family; Visit Provider Nurse Practitioner Family
DX: R19.4 Change in bowel habit (principal); R45.89 Other symptoms and signs involving emotional state; L98.9 Disorder of the skin and subcutaneous tissue, unspecified; R63.4 Abnormal weight loss
CPT/HCPCS: 36415; 80053; 84443; 85025

== ENCOUNTER 2021-03-19 19:30 | Outpatient (REF) | payer OTHER, SELFPAY ==
[2021-03-21 17:01] LABS: Leukocytes Stool Qualitative NEGATIVE (NEGATIVE)
== END 2021-03-19 19:31 | disposition home or self-care (01) ==
LOC: HO.LNP 19:30
PROVIDERS: Visit Provider Nurse Practitioner Family
DX: L98.9 Disorder of the skin and subcutaneous tissue, unspecified (principal); R19.4 Change in bowel habit; R63.4 Abnormal weight loss; R45.89 Other symptoms and signs involving emotional state; Z22.322 Carrier or suspected carrier of Methicillin resistant Staphylococcus aureus
CPT/HCPCS: 87045; 87046; 87177; 87209; 87329; 87338; 89055

== ENCOUNTER 2021-03-21 13:25 | Outpatient (REF) | payer OTHER, SELFPAY | END 2021-03-21 13:26 | disposition home or self-care (01) | LOC: HO.HMGCLNP 13:25 | PROVIDERS: Visit Provider Nurse Practitioner Family | DX: Z13.89 Encounter for screening for other disorder (principal) ==

== ENCOUNTER → 2021-03-31 15:06 | Outpatient (BNVA) | payer OTHER, SELFPAY | PROVIDERS: PCP Nurse Practitioner Family; Visit Provider Advanced Practice Midwife | DX: Z30.42 Encounter for surveillance of injectable contraceptive (principal) | CPT/HCPCS: 96372; J1050 ==

== ENCOUNTER 2021-05-21 18:08 | Inpatient (IN) | payer OTHER, SELFPAY ==
[2021-05-21 18:24] VITALS: RESP 16; BMI 24.5
[2021-05-21 19:30] VITALS: BP 143/75; PULSE 121; RESP 18; TEMP 36.9; O2SAT 90
[2021-05-21 20:28] LABS: COVID-19 Test Negative (Negative)
[2021-05-21 21:28] LABS: Glucose Urine UA NEG (NEG); Leukocyte Esterase Urine NEG (NEG); Nitrite Urine NEG (NEG); Specific Gravity - Urine <= 1.005 (1.005-1.025); Urine Blood 3+ (NEG); Urine Ketones NEG (NEG); Urine Protein NEG (NEG-TRACE)
[2021-05-21 21:30] LABS: Appearance Urine CLEAR; Color Urine YELLOW
[2021-05-21 21:32] LABS: UPreg QC Valid YES; Urine Pregnancy NEGATIVE (NEGATIVE)
--- NOTE | 2021-05-21 21:53 | PC.NURSE ---
Patient is in her room, sitting quietly, no distress observed/reported, patient is delusional, N referral completed via smart sheet, called N clinical professor called spoke with Cesia, confirmed receipt of referral, no eta at this time, will continue to monitor.
[2021-05-21 21:58] LABS: Amphetamine Screen Urine Not Detected (Not Detect); Barbiturates, Urine Not Detected (Not Detect); Benzodiazepines Screen Urine Not Detected (Not Detect); Cannabinoid Screen Urine Not Detected (Not Detect); Cocaine Screen Urine POSITIVE (Not Detect); Opiate Screen Urine Not Detected (Not Detect); Phencyclidine Screen Urine Not Detected (Not Detect)
[2021-05-21 22:19] LABS: WBC Urine 0-2 /HPF (0-4)
[2021-05-21 22:28] LABS: Basophils Percent Auto 0.3 % (0-2); Eosinophils Absolute Auto 0.1 X10*3/uL (0.0-0.4); Eosinophils Percent Auto 0.9 % (0-4); Hematocrit 30.1 % (37-47); Hemoglobin 9.8 g/dl (12.0-16.0); Imm Gran Abs Auto 0.03 X10*3/uL (0.00-0.03); Imm Gran Pct Auto 0.3 % (0.0-0.4); Lymphocytes Absolute Auto 2.1 X10*3/uL (1.2-4.9); Lymphocytes Percent Auto 20.3 % (20-40); MANUAL DIFF FLAG NO; Mean Corpuscular HGB Conc 32.6 g/dl (31.0-35.0); Mean Corpuscular Hemoglobin 27.1 pg (27.0-33.0); Mean Corpuscular Volume 83.1 fL (80-98); Mean Platelet Volume 9.3 fL (9.4-12.3); Monocytes Percent Auto 9.9 % (2-11); Neutrophils Absolute Auto 7.2 X10*3/uL (2.0-8.3); Neutrophils Percent Auto 68.3 % (45-73); Platelet Count 407 X10*3/uL (160-400); Red Blood Count 3.62 X10*6/uL (4.20-5.50); Red Cell Distribution Width 14.2 % (11.0-16.0); White Blood Count 10.5 X10*3/uL (4.8-10.8)
[2021-05-21 23:04] LABS: Ethanol < 10 mg/dL
[2021-05-21 23:07] LABS: Alanine Aminotransferase 16 U/L (0-31); Albumin Level 3.5 g/dL (3.5-5.0); Alkaline Phosphatase 71 U/L (39-117); Anion Gap 13 (12-20); Aspartate Amino Transferase 24 U/L (5-31); Bilirubin Total 0.3 mg/dL (0.0-1.0); Blood Urea Nitrogen 5 mg/dL (9-16); Calcium 9.2 mg/dL (8.4-10.2); Carbon Dioxide 34 mmol/L (22-29); Chloride 99 mmol/L (96-108); Creatinine Clr Calc Pharmacy 83.6; Estimated Glomerular Filt Rate > 60; Glucose Random 80 mg/dL (60-115); Potassium 3.4 mmol/L (3.3-5.1); Sodium 143 mmol/L (135-145); Total Protein 6.8 g/dL (6.5-8.0)
[2021-05-21 23:27] LABS: TSH reflex Free T4 1.02 uIU/mL (0.32-4.0)
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
[2021-05-22 01:03] VITALS: BP 106/55; PULSE 108; RESP 17; TEMP 37.2; O2SAT 97
[2021-05-22] MEDS: hydrOXYzine HCL 25 MG TABLET 50 MG PO ×2 (02:31→21:44)
[2021-05-22] MEDS: PARoxetine HCL 30 MG TABLET PO ×2 (02:31→21:44)
--- NOTE | 2021-05-22 06:05 | PC.NURSE ---
Patient slept through the night, no distress observed/reported, medication compliant, patient is psychotic and delusional, no behavioral concerns, [facility] assessed the patient, disposition is section 12 inpatient bed search, provider aware of bilateral below knee redness, no new order, per provider it is not cellulites but chronic autoimmune dermatitis, will continue to monitor.
[2021-05-22 06:19] VITALS: BP 133/84; PULSE 94; RESP 16; TEMP 36.6; O2SAT 97
--- NOTE | 2021-05-22 07:15 | PC.NURSE ---
patient appears at rest at present appears in no distress, breathing is even and unlabored at present
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
[2021-05-22 18:00] VITALS: BP 128/69; PULSE 104; RESP 18; TEMP 36.4; O2SAT 98
[2021-05-22] MEDS: OLANZapine ODT 10 MG TAB.RAPDIS TRANSLINGU (21:47)
--- NOTE | 2021-05-23 08:50 | P.PNPSI_ITS ---
Subjective Subjective Date of Service: 05/23/21 Reason For Visit: Psychosis Interim History: Lying in bed. Briefly interacted with TW. States Im so tired . Did not respond when questioned re psychoti Sx or fomication. Chart reviewed. Responses were appropriate. Review of Systems Review of Systems Yes all other systems are reviewed and are negative Mental Status Exam Mental Status Exam Narrative: lying in bed in position, blanket over her head/face so that MD cannot see any part of her. no PMA/PMR. frequent small adjustments in position. not substantially cooperative with interview. speech nml in rate, decr in amount, nml in loudness, flattened prosody, incr latency. thoughts linear and logical without evidence of delusions or paranoia. affect unobserved. mood fine denies SI/HI/AVH. Diagnostics Vital Signs (24Hr): Vital Signs - 24 hr 05/22/21 18:00 Temperature 97.5 F Pulse Rate 104 H Respiratory Rate 18 Blood Pressure 128/69 Pulse Oximetry 98 Body Mass Index 24.5 Labs Results: 05/21/21 22:20 05/21/21 22:20 Labs: Laboratory Results - last 48 hr 05/21/21 05/21/21 05/21/21 19:53 21:04 21:04 WBC RBC Hgb Hct MCV MCH MCHC RDW Plt Count MPV Immature Gran % (Auto) Neut % (Auto) Lymph % (Auto) [place] % (Auto) Eos % (Auto) Baso % (Auto) Lymph # (Auto) [place] # (Auto) Eos # (Auto) Baso # (Auto) Abs Immat Gran (auto) Absolute Neuts (auto) Absolute Nucleated RBC Nucleated RBC % (auto) Sodium Potassium Chloride Carbon Dioxide Anion Gap BUN Creatinine Estim Creat Clear Calc Estimated GFR Random Glucose Calcium Total Bilirubin AST ALT Alkaline Phosphatase Total Protein Albumin TSH Urine Color YELLOW Urine Appearance CLEAR Urine pH 7.0 Ur Specific [place] <= 1.005 Urine Protein NEG Urine Glucose (UA) NEG Urine Ketones NEG Urine Blood 3+ H Urine Nitrite NEG Ur Leukocyte Esterase NEG Urine RBC 10-14 H Urine WBC 0-2 Ur Squamous Epith Cells NONE Urine Bacteria NONE Urine Test NEGATIVE Urine Opiates Screen Ur Barbiturates Screen Ur Phencyclidine Scrn Ur Amphetamines Screen U Benzodiazepines Scrn Urine Cocaine Screen U Marijuana (THC) Screen Ethyl Alcohol COVID-19 (BLAISE) Negative COVID-19 Clin Com See Note 05/21/21 05/21/21 05/21/21 21:04 22:20 22:20 WBC 10.5 RBC 3.62 L D Hgb 9.8 L D Hct 30.1 L D MCV 83.1 MCH 27.1 MCHC 32.6 RDW 14.2 Plt Count 407 H MPV 9.3 L Immature Gran % (Auto) 0.3 Neut % (Auto) 68.3 Lymph % (Auto) 20.3 [place] % (Auto) 9.9 Eos % (Auto) 0.9 Baso % (Auto) 0.3 Lymph # (Auto) 2.1 [place] # (Auto) 1.0 Eos # (Auto) 0.1 Baso # (Auto) 0.0 Abs Immat Gran (auto) 0.03 Absolute Neuts (auto) 7.2 Absolute Nucleated RBC 0.000 Nucleated RBC % (auto) 0.0 Sodium 143 Potassium 3.4 Chloride 99 Carbon Dioxide 34 H Anion Gap 13 BUN 5 L Creatinine 0.81 Estim Creat Clear Calc 83.6 Estimated GFR > 60 Random Glucose 80 Calcium 9.2 Total Bilirubin 0.3 AST 24 ALT 16 Alkaline Phosphatase 71 Total Protein 6.8 Albumin 3.5 TSH 1.02 Urine Color Urine Appearance Urine pH Ur Specific [place] Urine Protein Urine Glucose (UA) Urine Ketones Urine Blood Urine Nitrite Ur Leukocyte Esterase Urine RBC Urine WBC Ur Squamous Epith Cells Urine Bacteria Urine Test Urine Opiates Screen Not Detected Ur Barbiturates Screen Not Detected Ur Phencyclidine Scrn Not Detected Ur Amphetamines Screen Not Detected U Benzodiazepines Scrn Not Detected Urine Cocaine Screen POSITIVE H U Marijuana (THC) Screen Not Detected Ethyl Alcohol COVID-19 (BLAISE) COVID-19 Clin Com 05/21/21 22:20 WBC RBC Hgb Hct MCV MCH MCHC RDW Plt Count MPV Immature Gran % (Auto) Neut % (Auto) Lymph % (Auto) [place] % (Auto) Eos % (Auto) Baso % (Auto) Lymph # (Auto) [place] # (Auto) Eos # (Auto) Baso # (Auto) Abs Immat Gran (auto) Absolute Neuts (auto) Absolute Nucleated RBC Nucleated RBC % (auto) Sodium Potassium Chloride Carbon Dioxide Anion Gap BUN Creatinine Estim Creat Clear Calc Estimated GFR Random Glucose Calcium Total Bilirubin AST ALT Alkaline Phosphatase Total Protein Albumin TSH Urine Color Urine Appearance Urine pH Ur Specific [place] Urine Protein Urine Glucose (UA) Urine Ketones Urine Blood Urine Nitrite Ur Leukocyte Esterase Urine RBC Urine WBC Ur Squamous Epith Cells Urine Bacteria Urine Test Urine Opiates Screen Ur Barbiturates Screen Ur Phencyclidine Scrn Ur Amphetamines Screen U Benzodiazepines Scrn Urine Cocaine Screen U Marijuana (THC) Screen Ethyl Alcohol < 10 COVID-19 (BLAISE) COVID-19 Clin Com Medications Medications Current Medications Generic Name Dose Route Start Last Admin Trade Name Freq PRN Reason Stop Dose Admin Al Hydroxide/Mg Hydroxide 30 ml 05/22/21 16:34 Magnesium Hydrox/Alum Hydrox 30 Ml Oral.Susp PO Q6H PRN Heartburn/Nausea Hydroxyzine HCl 50 mg 05/22/21 01:30 05/22/21 21:44 Hydroxyzine Hcl 25 Mg Tablet PO 50 mg BEDTIME IRAIS Administration Hydroxyzine HCl 25 mg 05/22/21 16:34 Hydroxyzine Hcl 25 Mg Tablet PO BEDTIME PRN Anxiety Magnesium Hydroxide 30 ml 05/22/21 16:34 Milk Of Magnesia 30 Ml Oral.Susp PO DAILY PRN Constipation Nicotine Polacrilex 4 mg 05/22/21 16:34 Nicotine Polacrilex 2 Mg Gum BUCCAL Q2H PRN Nicotine Cravings Olanzapine 10 mg 05/22/21 21:00 05/22/21 21:47 Olanzapine Odt 10 Mg Tab.Rapdis TRANSLINGU 10 mg BEDTIME IRAIS Administration Paroxetine HCl 30 mg 05/22/21 21:00 05/22/21 21:44 Paroxetine Hcl 30 Mg Tablet PO 30 mg BEDTIME IRAIS Administration Trazodone HCl 50 mg 05/22/21 16:34 Trazodone Hcl 50 Mg Tablet PO BEDTIME PRN Insomnia Allergies Allergies Allergy/AdvReac Type Severity Reaction Status Date / Time adhesive [ADHESIVE] Allergy Intermediate RED RASH Verified 12/22/20 12:24 nickel [NICKEL] Allergy Intermediate RASH Verified 12/22/20 12:24 tramadol [TRAMADOL] Allergy Intermediate NAUSEA & Verified 12/22/20 12:24 VOMITING,RASH acetaminophen [From VICODIN] Allergy Unknown RASH Verified 12/22/20 12:24 hydrocodone [From VICODIN] Allergy Unknown RASH Verified 12/22/20 12:24 naproxen [NAPROXEN] Allergy Unknown GI Verified 12/22/20 12:24 UPSET,RASH Nickel Allergy Unknown rash Verified 12/22/20 12:24 Adhesive Allergy Unknown rash Uncoded 12/22/20 12:24 adhesive tape Allergy Unknown rash Uncoded 12/22/20 12:24 MOLD TREES WEEDS cats DOGS Allergy Unknown PER Uncoded 12/22/20 12:24 ALLERGY TESTING Mold, weeds, trees, cats, Allergy Unknown per Uncoded 12/22/20 12:24 dogs allergy testing Naproxen Allergy Unknown rash Uncoded 12/22/20 12:24 Tramadol Allergy Unknown rash Uncoded 12/22/20 12:24 vicodin Allergy Unknown rash Uncoded 12/22/20 12:24 Assessment & Plan Assessment & Plan (1) Acute psychosis: Status: Acute Code(s): F23 - Brief psychotic disorder Assessment and Plan: start olanzapine 10 mg at HS. likely 2/2 stimulant and/or cocaine use. (2) Skin lesions: Status: Acute Code(s): L98.9 - Disorder of the skin and subcutaneous tissue, unspecified Assessment and Plan: may also be secondary to stimulant/cocaine use. will consult hospitalist for opinion on mgmt (also possibility of cellulitis and pedal edema, etc). (3) Hematuria: Status: Acute Code(s): R31.9 - Hematuria, unspecified Assessment and Plan: unknown etiology. hospitalist consult. (4) Anemia: Status: Acute Code(s): D64.9 - Anemia, unspecified Assessment and Plan: unknown etiology. hospitalist consult. (5) Cocaine use disorder: Status: Acute Code(s): F14.10 - Cocaine abuse, uncomplicated Assessment and Plan: abstain. supportive care for detox. refer for outpt care once stable. Greater than 50% of the session was spent on counseling and/or coordination of care Reason for contiued inpatient stay Substantial Risk for: rapid decompensation
[2021-05-23 12:20] VITALS: BP 98/56; PULSE 81; RESP 18; TEMP 36.9; O2SAT 96
--- NOTE | 2021-05-23 16:14 | PM.IMCN ---
History of Present Illness Data of Consult Service Date: 05/23/21 Requesting physician: Kwaku Luke Primary Care Provider: Unknown Physician HPI Reason for consult: Anemia 36-year-old woman admitted to [facility] section 12 due to psychosis. Patient was noted to be anemic with no symptoms of anemia. She has a history dermatosis with question psychiatric relation. Her hemoglobin hematocrit have significantly decreased. In March of 2021 her H&H was 13.0/40.3 on May 21 it was 9.8 and 30.1. She denies any GI bleeding Review of Systems Review of Systems: Denies any recent fever chills or decrease in appetite respiratory denies any shortness of breath coverage production cardiovascular is adjustment of any PND or edema gastrointestinal denies any dysphagia abdominal pain nausea vomiting or diarrhea genitourinary denies any dysuria frequency or hematuria musculoskeletal denies any joint pain or swelling neuropsych denies any weakness or seizures all other systems reviewed are negative [facility] Medical History Migraine headache ERIN (obstructive sleep apnea) Family History Father No problems noted. Mother HTN (hypertension) Sister No problems noted. Sister No problems noted. Sister No problems noted. Sister No problems noted. Sister No problems noted. Sister No problems noted. Sister No problems noted. Daughter No problems noted. Surgical History H/O removal of cyst History of esophagogastroduodenoscopy (EGD) Hx of adenoidectomy Hx of colonoscopy Hx of sinus surgery Hx of tympanostomy Neoplasia S/P arthroscopic surgery of left knee Social History Household Members: Family and None Household Members Other:: mother, oldest sister, father and [id number] Housing: House Do you presently have visiting nurse or other home services: No Unable to assess alcohol history related to: Unable to respond Alcohol intake: current Alcohol intake frequency: holidays/special occasions only Patient Tobacco Use Status: Tobacco use Unknown Use of substances other than those prescribed or required for medical reasons: Unknown Substance Use Type: Crack/Cocaine Currently Displaying Signs/Symptoms of Drug Intoxication Withdrawal: No Other Past Substance Use Problem:: tox screen positive for cocaine Advance Directives: No Advance Directives Information Provided: Yes Do you have thoughts of harming others: None Do you have a plan to hurt others: No Plan Recently lost weight without trying: Unsure Patient : No : No Meds Allergies Allergy/AdvReac Type Severity Reaction Status Date / Time adhesive [ADHESIVE] Allergy Intermediate RED RASH Verified 12/22/20 12:24 nickel [NICKEL] Allergy Intermediate RASH Verified 12/22/20 12:24 tramadol [TRAMADOL] Allergy Intermediate NAUSEA & Verified 12/22/20 12:24 VOMITING,RASH acetaminophen [From VICODIN] Allergy Unknown RASH Verified 12/22/20 12:24 hydrocodone [From VICODIN] Allergy Unknown RASH Verified 12/22/20 12:24 naproxen [NAPROXEN] Allergy Unknown GI Verified 12/22/20 12:24 UPSET,RASH Nickel Allergy Unknown rash Verified 12/22/20 12:24 Adhesive Allergy Unknown rash Uncoded 12/22/20 12:24 adhesive tape Allergy Unknown rash Uncoded 12/22/20 12:24 MOLD TREES WEEDS cats DOGS Allergy Unknown PER Uncoded 12/22/20 12:24 ALLERGY TESTING Mold, weeds, trees, cats, Allergy Unknown per Uncoded 12/22/20 12:24 dogs allergy testing Naproxen Allergy Unknown rash Uncoded 12/22/20 12:24 Tramadol Allergy Unknown rash Uncoded 12/22/20 12:24 vicodin Allergy Unknown rash Uncoded 12/22/20 12:24 Active Medications: Current Medications Generic Name Dose Route Start Last Admin Trade Name Freq PRN Reason Stop Dose Admin Al Hydroxide/Mg Hydroxide 30 ml 05/22/21 16:34 Magnesium Hydrox/Alum Hydrox 30 Ml Oral.Susp PO Q6H PRN Heartburn/Nausea Hydroxyzine HCl 50 mg 05/22/21 01:30 05/22/21 21:44 Hydroxyzine Hcl 25 Mg Tablet PO 50 mg BEDTIME IRAIS Administration Hydroxyzine HCl 25 mg 05/22/21 16:34 Hydroxyzine Hcl 25 Mg Tablet PO BEDTIME PRN Anxiety Magnesium Hydroxide 30 ml 05/22/21 16:34 Milk Of Magnesia 30 Ml Oral.Susp PO DAILY PRN Constipation Nicotine Polacrilex 4 mg 05/22/21 16:34 Nicotine Polacrilex 2 Mg Gum BUCCAL Q2H PRN Nicotine Cravings Olanzapine 10 mg 05/22/21 21:00 05/22/21 21:47 Olanzapine Odt 10 Mg Tab.Rapdis TRANSLINGU 10 mg BEDTIME IRAIS Administration Paroxetine HCl 30 mg 05/22/21 21:00 05/22/21 21:44 Paroxetine Hcl 30 Mg Tablet PO 30 mg BEDTIME IRAIS Administration Trazodone HCl 50 mg 05/22/21 16:34 Trazodone Hcl 50 Mg Tablet PO BEDTIME PRN Insomnia Home Medications Medication Instructions Recorded Confirmed Last Taken Type hydroxyzine HCl 50 mg PO BEDTIME 05/22/21 05/22/21 Unknown History paroxetine HCl 1 tab PO DAILY 05/22/21 05/22/21 Unknown History Physical Exam Vital Signs and Narrative: Vital Signs: Last Vital Signs Temp 98.4 F 05/23/21 12:20 Pulse 81 05/23/21 12:20 Resp 18 05/23/21 12:20 BP 98/56 L 05/23/21 12:20 Pulse Ox 96 05/23/21 12:20 Body Mass Index 24.5 Appearing in no acute distress, stressed head is normocephalic atraumatic eyes pupils are PERRLA sclera is anicteric mouth throat mucous membranes are intact and moist neck is supple no lymphadenopathy, no JVD noted lung sounds normal expansion heart clear S1, S2 positive bowel sounds, abdomen is soft neuro patient is alert x3, no focal deficits skin multiple areas of scabbed/ picked areas on her legs and arms no open areas with discharge or wheezing no redness chronic swelling, declined Samuel stockings Results Labs CBC and Chem 7: 05/21/21 22:20 05/21/21 22:20 Assessment and Plan (1) Acute psychosis: Status: Acute (2) Anemia: Status: Acute 36-year-old woman admitted to under section 12 due to psychosis. Medical consultation was placed due to anemia. Patient did have significant drop in hemoglobin and hematocrit over the last 2 months. Patient denied any overt bleeding or blood in her stool. Anemia. Significant drop in her hematocrit over the last 2 months. Uncooperative declined to have any blood work drawn orders placed for iron studies, stool occult orders will remain active and can be drawn when patient agrees. Consider following her hemoglobin and hematocrit Mild hypotension. May be secondary to anemia versus dehydration/volume depletion Not on any antihypertensives Monitor blood pressure encourage oral intake Dermatosis. No active infection noted Follow-up with dermatology as outpatient as needed Declined Samuel stockings for compression of chronic edema Mental health. Management as per psychiatric team Attending Dr. Wilson
[2021-05-23 18:00] VITALS: BP 135/74; PULSE 86; RESP 18; TEMP 36.2; O2SAT 98
[2021-05-23] MEDS: hydrOXYzine HCL 25 MG TABLET 50 MG PO (21:39)
[2021-05-23] MEDS: PARoxetine HCL 30 MG TABLET PO (21:39)
[2021-05-23] MEDS: OLANZapine ODT 10 MG TAB.RAPDIS TRANSLINGU (21:39)
--- NOTE | 2021-05-24 07:30 | HO.PSYCHPN ---
Subjective Subjective Date of Service: 05/24/21 Reason For Visit: Psychosis Interim History: 05/23:Lying in bed. Briefly interacted with TW. States Im so tired . Did not respond when questioned re psychoti Sx or fomication. Chart reviewed. Responses were appropriate. 05/24: Refused to engage. Still in bed. I dont want to be here, so Im going to stay in bed . Refused meds. Denies all Sx. Review of Systems Review of Systems Denies any recent fever chills or decrease in appetite respiratory denies any shortness of breath coverage production cardiovascular is adjustment of any PND or edema gastrointestinal denies any dysphagia abdominal pain nausea vomiting or diarrhea genitourinary denies any dysuria frequency or hematuria musculoskeletal denies any joint pain or swelling neuropsych denies any weakness or seizures all other systems reviewed are negative Yes all other systems are reviewed and are negative Mental Status Exam Mental Status Exam Narrative: lying in bed in position, blanket over her head/face so that MD cannot see any part of her. no PMA/PMR. frequent small adjustments in position. not substantially cooperative with interview. speech nml in rate, decr in amount, nml in loudness, flattened prosody, incr latency. thoughts linear and logical without evidence of delusions or paranoia. affect unobserved. mood fine denies SI/HI/AVH. Diagnostics Vital Signs (24Hr): Vital Signs - 24 hr 05/23/21 12:20 05/23/21 18:00 Temperature 98.4 F 97.1 F Pulse Rate 81 86 Respiratory Rate 18 18 Blood Pressure 98/56 L 135/74 Pulse Oximetry 96 98 Body Mass Index 24.5 Labs Results: 05/21/21 22:20 05/21/21 22:20 Medications Medications Current Medications Generic Name Dose Route Start Last Admin Trade Name Freq PRN Reason Stop Dose Admin Al Hydroxide/Mg Hydroxide 30 ml 05/22/21 16:34 Magnesium Hydrox/Alum Hydrox 30 Ml Oral.Susp PO Q6H PRN Heartburn/Nausea Hydroxyzine HCl 50 mg 05/22/21 01:30 05/23/21 21:39 Hydroxyzine Hcl 25 Mg Tablet PO 50 mg BEDTIME IRAIS Administration Hydroxyzine HCl 25 mg 05/22/21 16:34 Hydroxyzine Hcl 25 Mg Tablet PO BEDTIME PRN Anxiety Magnesium Hydroxide 30 ml 05/22/21 16:34 Milk Of Magnesia 30 Ml Oral.Susp PO DAILY PRN Constipation Nicotine Polacrilex 4 mg 05/22/21 16:34 Nicotine Polacrilex 2 Mg Gum BUCCAL Q2H PRN Nicotine Cravings Olanzapine 10 mg 05/22/21 21:00 05/23/21 21:39 Olanzapine Odt 10 Mg Tab.Rapdis TRANSLINGU 10 mg BEDTIME IRAIS Administration Paroxetine HCl 30 mg 05/22/21 21:00 05/23/21 21:39 Paroxetine Hcl 30 Mg Tablet PO 30 mg BEDTIME IRAIS Administration Trazodone HCl 50 mg 05/22/21 16:34 Trazodone Hcl 50 Mg Tablet PO BEDTIME PRN Insomnia Allergies Allergies Allergy/AdvReac Type Severity Reaction Status Date / Time adhesive [ADHESIVE] Allergy Intermediate RED RASH Verified 12/22/20 12:24 nickel [NICKEL] Allergy Intermediate RASH Verified 12/22/20 12:24 tramadol [TRAMADOL] Allergy Intermediate NAUSEA & Verified 12/22/20 12:24 VOMITING,RASH acetaminophen [From VICODIN] Allergy Unknown RASH Verified 12/22/20 12:24 hydrocodone [From VICODIN] Allergy Unknown RASH Verified 12/22/20 12:24 naproxen [NAPROXEN] Allergy Unknown GI Verified 12/22/20 12:24 UPSET,RASH Nickel Allergy Unknown rash Verified 12/22/20 12:24 Adhesive Allergy Unknown rash Uncoded 12/22/20 12:24 adhesive tape Allergy Unknown rash Uncoded 12/22/20 12:24 MOLD TREES WEEDS cats DOGS Allergy Unknown PER Uncoded 12/22/20 12:24 ALLERGY TESTING Mold, weeds, trees, cats, Allergy Unknown per Uncoded 12/22/20 12:24 dogs allergy testing Naproxen Allergy Unknown rash Uncoded 12/22/20 12:24 Tramadol Allergy Unknown rash Uncoded 12/22/20 12:24 vicodin Allergy Unknown rash Uncoded 12/22/20 12:24 Assessment & Plan Assessment & Plan (1) Acute psychosis: Status: Acute Code(s): F23 - Brief psychotic disorder (2) Anemia: Status: Acute Code(s): D64.9 - Anemia, unspecified Assessment and Plan: 36-year-old woman admitted to under section 12 due to psychosis. Medical consultation was placed due to anemia. Patient did have significant drop in hemoglobin and hematocrit over the last 2 months. Patient denied any overt bleeding or blood in her stool. Anemia. Significant drop in her hematocrit over the last 2 months. Uncooperative declined to have any blood work drawn orders placed for iron studies, stool occult orders will remain active and can be drawn when patient agrees. Consider following her hemoglobin and hematocrit Mild hypotension. May be secondary to anemia versus dehydration/volume depletion Not on any antihypertensives Monitor blood pressure encourage oral intake Dermatosis. No active infection noted Follow-up with dermatology as outpatient as needed Declined Samuel stockings for compression of chronic edema Mental health. Management as per psychiatric team Attending Dr. Wilson Greater than 50% of the session was spent on counseling and/or coordination of care Reason for contiued inpatient stay Substantial Risk for: harm to self
[2021-05-24 14:13] VITALS: BP 109/58; PULSE 85; RESP 18; TEMP 36.9; O2SAT 97
[2021-05-24 18:00] VITALS: BP 108/57; PULSE 108; RESP 16; TEMP 36.6; O2SAT 100
[2021-05-24] MEDS: PARoxetine HCL 30 MG TABLET PO (20:27)
[2021-05-24] MEDS: hydrOXYzine HCL 25 MG TABLET 50 MG PO (20:27)
[2021-05-24] MEDS: OLANZapine ODT 10 MG TAB.RAPDIS TRANSLINGU (20:27)
[2021-05-25 11:50] VITALS: BP 110/58; PULSE 94; RESP 16; TEMP 36.8; O2SAT 99
--- NOTE | 2021-05-25 13:26 | HO.PSYCHPN ---
Subjective Subjective Date of Service: 05/25/21 Reason For Visit: Psychosis Interim History: pt found resting in her bed late morning, position, blanket pulled over her face. she did respond to MD and showed her face today. she was irritable and angry to be in the hospital, did not recognize that she has any mental illness, stated she would not take medication, and demanded to be discharged. she reported her plan was to return to her parents' house, collect her belongings, and leave. she declined to tell MD where she would be moving, saying, it's none of your business. she was generally not cooperative, stating repeatedly she just wants to be discharged, she doesn't belong here, she has no mental illness, and she won't take any medication (however, she has been taking olanzapine 10 mg at bedtime since arrival). despite repeatedly saying she does not wish to talk, she continues to respond in some way to MD's questions for at least 10 minutes, until finally she doesn't and MD excuses himself. per staff, pt pope snot leeft her room and has not been cooperative with evaluations/assessments. she is sleeping through the night and taking offered medication. Mental Status Exam Mental Status Exam Narrative: lying in bed in position, blanket over her head/face (occasionally sitting up to address MD, showing her face, and then lying back down and hiding her face again). PMA of frequent agitated risings from the right lateral decubitus position. not substantially cooperative with interview. speech incr in rate, amount, loudness. nml prosody, decr latency. thoughts linear and logical. hyperintense and labile. mood not assessed. denies SI. Diagnostics Vital Signs (24Hr): Vital Signs - 24 hr 05/24/21 14:13 05/24/21 18:00 05/25/21 11:50 Temperature 98.4 F 97.8 F 98.3 F Pulse Rate 85 108 H 94 Respiratory Rate 18 16 16 Blood Pressure 109/58 L 108/57 L 110/58 L Pulse Oximetry 97 100 99 Body Mass Index 24.5 Labs Results: 05/21/21 22:20 05/21/21 22:20 Medications Medications Current Medications Generic Name Dose Route Start Last Admin Trade Name Freq PRN Reason Stop Dose Admin Al Hydroxide/Mg Hydroxide 30 ml 05/22/21 16:34 Magnesium Hydrox/Alum Hydrox 30 Ml Oral.Susp PO Q6H PRN Heartburn/Nausea Hydroxyzine HCl 50 mg 05/22/21 01:30 05/24/21 20:27 Hydroxyzine Hcl 25 Mg Tablet PO 50 mg BEDTIME IRAIS Administration Hydroxyzine HCl 25 mg 05/22/21 16:34 Hydroxyzine Hcl 25 Mg Tablet PO BEDTIME PRN Anxiety Magnesium Hydroxide 30 ml 05/22/21 16:34 Milk Of Magnesia 30 Ml Oral.Susp PO DAILY PRN Constipation Nicotine Polacrilex 4 mg 05/22/21 16:34 Nicotine Polacrilex 2 Mg Gum BUCCAL Q2H PRN Nicotine Cravings Olanzapine 10 mg 05/22/21 21:00 05/24/21 20:27 Olanzapine Odt 10 Mg Tab.Rapdis TRANSLINGU 10 mg BEDTIME IRAIS Administration Paroxetine HCl 30 mg 05/22/21 21:00 05/24/21 20:27 Paroxetine Hcl 30 Mg Tablet PO 30 mg BEDTIME IRAIS Administration Trazodone HCl 50 mg 05/22/21 16:34 Trazodone Hcl 50 Mg Tablet PO BEDTIME PRN Insomnia Allergies Allergies Allergy/AdvReac Type Severity Reaction Status Date / Time adhesive [ADHESIVE] Allergy Intermediate RED RASH Verified 12/22/20 12:24 nickel [NICKEL] Allergy Intermediate RASH Verified 12/22/20 12:24 tramadol [TRAMADOL] Allergy Intermediate NAUSEA & Verified 12/22/20 12:24 VOMITING,RASH acetaminophen [From VICODIN] Allergy Unknown RASH Verified 12/22/20 12:24 hydrocodone [From VICODIN] Allergy Unknown RASH Verified 12/22/20 12:24 naproxen [NAPROXEN] Allergy Unknown GI Verified 12/22/20 12:24 UPSET,RASH Nickel Allergy Unknown rash Verified 12/22/20 12:24 Adhesive Allergy Unknown rash Uncoded 12/22/20 12:24 adhesive tape Allergy Unknown rash Uncoded 12/22/20 12:24 MOLD TREES WEEDS cats DOGS Allergy Unknown PER Uncoded 12/22/20 12:24 ALLERGY TESTING Mold, weeds, trees, cats, Allergy Unknown per Uncoded 12/22/20 12:24 dogs allergy testing Naproxen Allergy Unknown rash Uncoded 12/22/20 12:24 Tramadol Allergy Unknown rash Uncoded 12/22/20 12:24 vicodin Allergy Unknown rash Uncoded 12/22/20 12:24 Assessment & Plan Assessment & Plan (1) Acute psychosis: Status: Acute Code(s): F23 - Brief psychotic disorder Assessment and Plan: started olanzapine 10 mg at HS. 2/2 stimulant and/or cocaine use versus primary psychiatric disorder. delusional and paranoid. sleeping through the night. unclear if primary psychotic versus bipolar. non substantial improvement in Sx after 3 nights of zyprexa and reasonable sleep. level of dangerous fairly dubious; she may not be committable. (2) Anemia: Status: Acute Code(s): D64.9 - Anemia, unspecified Assessment and Plan: 36-year-old woman admitted to under section 12 due to psychosis. Medical consultation was placed due to anemia. Patient did have significant drop in hemoglobin and hematocrit over the last 2 months. Patient denied any overt bleeding or blood in her stool. Anemia. Significant drop in her hematocrit over the last 2 months. Uncooperative declined to have any blood work drawn orders placed for iron studies, stool occult orders will remain active and can be drawn when patient agrees. Consider following her hemoglobin and hematocrit Mild hypotension. May be secondary to anemia versus dehydration/volume depletion Not on any antihypertensives Monitor blood pressure encourage oral intake Dermatosis. No active infection noted Follow-up with dermatology as outpatient as needed Declined Samuel stockings for compression of chronic edema Mental health. Management as per psychiatric team Attending Dr. Wilson Greater than 50% of the session was spent on counseling and/or coordination of care Reason for contiued inpatient stay Substantial Risk for: harm to self, inability to function and rapid decompensation
[2021-05-25 15:54] VITALS: BP 121/76; PULSE 89; RESP 16; TEMP 36.7; O2SAT 98
--- NOTE | 2021-05-25 15:56 | MHC.CLN ---
NUTRITION NOTE VISITED WITH PATIENT TO ASK ABOUT REPORTED 35# WEIGHT LOSS. UNABLE TO CONFIRM/QUANTIFY WEIGHT LOSS. STATED THAT DID NOT WANT TO EAT FOOD HERE STATING IT WAS DISGUSTING . OFFERED TO GET HER FOOD FROM THE [facility] AND SHE DECLINED. OFFERED SUPPLEMENT AND SHE DECLINED. CONTINUE TO PROVIDE MEAL TRAYS AND ENCOURAGE INTAKE.
--- NOTE | 2021-05-25 17:53 | PM.EVENT ---
Event Note Date of Service: 05/25/21 Event Note: 36-year-old woman admitted to for psychiatric care. Complaints of right-sided ear pain and fullness. History ear infections as a child. reported some drainage from her right ear after her shower. Denies fever, chills, nausea, vomiting, diarrhea. Apparently is not eating at this time as she is upset that she is here on a section 12 and only drinking water. She also had some other lab work to be done for iron studies but declines. Alert and oriented x3, Right ear fullness noted, no erythema or drainage, left ear tympanic membrane without erythema or edema, No headache. Will start Augmentin for 5 days, should take with food.
[2021-05-25] MEDS: Amoxicillin/Potassium Clav 875 MG TABLET PO (18:57)
[2021-05-25] MEDS: OLANZapine ODT 10 MG TAB.RAPDIS TRANSLINGU (20:56)
[2021-05-25] MEDS: PARoxetine HCL 30 MG TABLET PO (20:56)
[2021-05-25] MEDS: hydrOXYzine HCL 25 MG TABLET 50 MG PO (20:56)
[2021-05-26] MEDS: Amoxicillin/Potassium Clav 875 MG TABLET PO ×2 (06:23→17:23)
[2021-05-26 11:51] VITALS: RESP 18
--- NOTE | 2021-05-26 12:49 | P.PNPSI_ITS ---
Subjective Subjective Date of Service: 05/26/21 Reason For Visit: Psychosis Interim History: pt found lying in bed facing the wall/window with covers over her head. initially minimally responsive and then ignoring MD. MD states he will be filing for commitment tomorrow and provides portillo's warning. pt becomes much more agitated, sitting up in bed and talking very loudly at MD. she states there is nothing wrong with her and she doesn't belong here, she is not psychotic, she is going to [facility] this facility as soon as she is out. MD suggests she has been unable to function at home and has been unable to adequately provide for her own nutrition, per collateral report from pt's mother. she denies, stating she eats fine at home and she is just not eating here because the food is disgusting. she ultimately tells MD she will not speak with him and remains silent, so MD excuses himself from the room. per staff, pt came out of her room only to shower x1 yesterday. slept through the night, in bed much of the day. Mental Status Exam Mental Status Exam Narrative: lying in bed in position, blanket over her head/face (variably sitting up to address MD, showing her face, and then lying back down and hiding her face again). PMA of frequent agitated risings from the right lateral decubitus position. not substantially cooperative with interview. speech incr in rate, amount, loudness. nml prosody, decr latency. thoughts linear and logical. hyperintense and labile. mood not assessed. no SI/HI/AVH expressed. Diagnostics Vital Signs (24Hr): Vital Signs - 24 hr 05/25/21 15:54 05/26/21 11:51 Temperature 98.1 F Pulse Rate 89 Respiratory Rate 16 18 Blood Pressure 121/76 Pulse Oximetry 98 Body Mass Index 24.5 Labs Results: 05/21/21 22:20 05/21/21 22:20 Medications Medications Current Medications Generic Name Dose Route Start Last Admin Trade Name Freq PRN Reason Stop Dose Admin Al Hydroxide/Mg Hydroxide 30 ml 05/22/21 16:34 Magnesium Hydrox/Alum Hydrox 30 Ml Oral.Susp PO Q6H PRN Heartburn/Nausea Amoxicillin/Clavulanate Potassium 875 mg 05/25/21 18:00 05/26/21 06:23 Amoxicillin/Potassium Clav 875 Mg Tablet PO 05/30/21 06:01 875 mg Q12H IRAIS Administration Hydroxyzine HCl 50 mg 05/22/21 01:30 05/25/21 20:56 Hydroxyzine Hcl 25 Mg Tablet PO 50 mg BEDTIME IRAIS Administration Hydroxyzine HCl 25 mg 05/22/21 16:34 Hydroxyzine Hcl 25 Mg Tablet PO BEDTIME PRN Anxiety Magnesium Hydroxide 30 ml 05/22/21 16:34 Milk Of Magnesia 30 Ml Oral.Susp PO DAILY PRN Constipation Nicotine Polacrilex 4 mg 05/22/21 16:34 Nicotine Polacrilex 2 Mg Gum BUCCAL Q2H PRN Nicotine Cravings Olanzapine 20 mg 05/26/21 21:00 Olanzapine Odt 10 Mg Tab.Rapdis TRANSLINGU BEDTIME IRAIS Paroxetine HCl 30 mg 05/22/21 21:00 05/25/21 20:56 Paroxetine Hcl 30 Mg Tablet PO 30 mg BEDTIME IRAIS Administration Trazodone HCl 50 mg 05/22/21 16:34 Trazodone Hcl 50 Mg Tablet PO BEDTIME PRN Insomnia Allergies Allergies Allergy/AdvReac Type Severity Reaction Status Date / Time adhesive [ADHESIVE] Allergy Intermediate RED RASH Verified 12/22/20 12:24 nickel [NICKEL] Allergy Intermediate RASH Verified 12/22/20 12:24 tramadol [TRAMADOL] Allergy Intermediate NAUSEA & Verified 12/22/20 12:24 VOMITING,RASH acetaminophen [From VICODIN] Allergy Unknown RASH Verified 12/22/20 12:24 hydrocodone [From VICODIN] Allergy Unknown RASH Verified 12/22/20 12:24 naproxen [NAPROXEN] Allergy Unknown GI Verified 12/22/20 12:24 UPSET,RASH Nickel Allergy Unknown rash Verified 12/22/20 12:24 Adhesive Allergy Unknown rash Uncoded 12/22/20 12:24 adhesive tape Allergy Unknown rash Uncoded 12/22/20 12:24 MOLD TREES WEEDS cats DOGS Allergy Unknown PER Uncoded 12/22/20 12:24 ALLERGY TESTING Mold, weeds, trees, cats, Allergy Unknown per Uncoded 12/22/20 12:24 dogs allergy testing Naproxen Allergy Unknown rash Uncoded 12/22/20 12:24 Tramadol Allergy Unknown rash Uncoded 12/22/20 12:24 vicodin Allergy Unknown rash Uncoded 12/22/20 12:24 Assessment & Plan Assessment & Plan (1) Acute psychosis: Status: Acute Code(s): F23 - Brief psychotic disorder Assessment and Plan: started olanzapine 10 mg at HS. psychosis 2/2 stimulant and/or cocaine use versus primary psychiatric disorder. delusional and paranoid. sleeping through the night. unclear if primary psychotic versus bipolar. non substantial improvement in Sx after 3 nights of zyprexa and reasonable sleep. zyprexa dosing increased from 10 mg QHS to 20 mg QHS as of 05/26. pt has been largely in capacitated at home, spending much of her time since november in her bed and has also lost 90 pounds in that time frame per her mother. pt is assessed as gravely disabled and application for committment will be pursued based on that premise. (2) Anemia: Status: Acute Code(s): D64.9 - Anemia, unspecified Assessment and Plan: 36-year-old woman admitted to under section 12 due to psychosis. Medical consultation was placed due to anemia. Patient did have significant drop in hemoglobin and hematocrit over the last 2 months. Patient denied any overt bleeding or blood in her stool. ear infection - augmentin for 5 days starting 05/25. Anemia. Significant drop in her hematocrit over the last 2 months. Uncooperative declined to have any blood work drawn orders placed for iron studies, stool occult orders will remain active and can be drawn when patient agrees. Consider following her hemoglobin and hematocrit Mild hypotension. May be secondary to anemia versus dehydration/volume depletion Not on any antihypertensives Monitor blood pressure encourage oral intake Dermatosis. No active infection noted Follow-up with dermatology as outpatient as needed Declined Samuel stockings for compression of chronic edema Mental health. Management as per psychiatric team Attending Dr. Wilson Greater than 50% of the session was spent on counseling and/or coordination of care Reason for contiued inpatient stay Substantial Risk for: inability to function and rapid decompensation
[2021-05-26] MEDS: OLANZapine ODT 10 MG TAB.RAPDIS 20 MG TRANSLINGU (20:25)
[2021-05-26] MEDS: PARoxetine HCL 30 MG TABLET PO (20:27)
[2021-05-26] MEDS: hydrOXYzine HCL 25 MG TABLET 50 MG PO (20:28)
[2021-05-26 20:30] VITALS: BP 120/78; PULSE 119; TEMP 36; O2SAT 95
[2021-05-27 06:00] VITALS: BP 133/89; PULSE 68; RESP 16; TEMP 36.4; O2SAT 96
[2021-05-27] MEDS: Amoxicillin/Potassium Clav 875 MG TABLET PO ×2 (08:44→18:24)
--- NOTE | 2021-05-27 12:01 | HO.PSYCHPN ---
Subjective Subjective Date of Service: 05/27/21 Reason For Visit: Psychosis Interim History: per staff, took HS zyprexa and it made her feel worse. reported difficult relationship with her mother and fear of losing her daughter, who is currently in DCF custody. eating only 25% of her meals. on interview with pt is less affectively intense and labile. she is able to answer MD's question about how the medication last night affected her negatively - she reported feeling very restless and like she was crawling out of her skin. MD noted this was a common side effect of the medication she was receiving and that MD would lower the dose. pt stated she does not need to be here, she does not have mental illness, she just wants to be discharged. MD informed her she would not be able to return to her parents' home and she stated she just needs to go there to get some things and then she will stay in a hotel. MD asked about her finances and she reported that she has money saved from when she was working. MD expressed concern about her ability to take care of herself outside the hospital which was met with derision and the statement that pt would like to never meet with this policy writer sales again. the interview was then concluded. Mental Status Exam Mental Status Exam Narrative: lying in bed in position, blanket over her head/face (variably sitting up to address MD, showing her face, and then lying back down and hiding her face again). PMA of frequent agitated risings from the right lateral decubitus position, though less agitated than yesterday. not substantially cooperative with interview aside from a few important moments. speech incr in rate, amount, loudness. nml prosody, decr latency. thoughts linear and illogical (such as that she is going to be kept here forever). hyperintense and labile, though less so than previously in this stay. mood not assessed. no SI/HI/AVH expressed. Diagnostics Vital Signs (24Hr): Vital Signs - 24 hr 05/26/21 20:30 05/27/21 06:00 Temperature 96.8 F 97.5 F Pulse Rate 119 H 68 Respiratory Rate 16 Blood Pressure 120/78 133/89 Pulse Oximetry 95 96 Body Mass Index 24.5 Labs Results: 05/21/21 22:20 05/21/21 22:20 Medications Medications Current Medications Generic Name Dose Route Start Last Admin Trade Name Freq PRN Reason Stop Dose Admin Al Hydroxide/Mg Hydroxide 30 ml 05/22/21 16:34 Magnesium Hydrox/Alum Hydrox 30 Ml Oral.Susp PO Q6H PRN Heartburn/Nausea Amoxicillin/Clavulanate Potassium 875 mg 05/25/21 18:00 05/27/21 08:44 Amoxicillin/Potassium Clav 875 Mg Tablet PO 05/30/21 06:01 875 mg Q12H IRAIS Administration Hydroxyzine HCl 50 mg 05/22/21 01:30 05/26/21 20:28 Hydroxyzine Hcl 25 Mg Tablet PO 50 mg BEDTIME IRAIS Administration Hydroxyzine HCl 25 mg 05/22/21 16:34 Hydroxyzine Hcl 25 Mg Tablet PO BEDTIME PRN Anxiety Magnesium Hydroxide 30 ml 05/22/21 16:34 Milk Of Magnesia 30 Ml Oral.Susp PO DAILY PRN Constipation Nicotine Polacrilex 4 mg 05/22/21 16:34 Nicotine Polacrilex 2 Mg Gum BUCCAL Q2H PRN Nicotine Cravings Olanzapine 15 mg 05/27/21 21:00 Olanzapine Odt 10 Mg Tab.Rapdis TRANSLINGU BEDTIME IRAIS Paroxetine HCl 30 mg 05/22/21 21:00 05/26/21 20:27 Paroxetine Hcl 30 Mg Tablet PO 30 mg BEDTIME IRAIS Administration Trazodone HCl 50 mg 05/22/21 16:34 Trazodone Hcl 50 Mg Tablet PO BEDTIME PRN Insomnia Allergies Allergies Allergy/AdvReac Type Severity Reaction Status Date / Time adhesive [ADHESIVE] Allergy Intermediate RED RASH Verified 12/22/20 12:24 nickel [NICKEL] Allergy Intermediate RASH Verified 12/22/20 12:24 tramadol [TRAMADOL] Allergy Intermediate NAUSEA & Verified 12/22/20 12:24 VOMITING,RASH acetaminophen [From VICODIN] Allergy Unknown RASH Verified 12/22/20 12:24 hydrocodone [From VICODIN] Allergy Unknown RASH Verified 12/22/20 12:24 naproxen [NAPROXEN] Allergy Unknown GI Verified 12/22/20 12:24 UPSET,RASH Nickel Allergy Unknown rash Verified 12/22/20 12:24 Adhesive Allergy Unknown rash Uncoded 12/22/20 12:24 adhesive tape Allergy Unknown rash Uncoded 12/22/20 12:24 MOLD TREES WEEDS cats DOGS Allergy Unknown PER Uncoded 12/22/20 12:24 ALLERGY TESTING Mold, weeds, trees, cats, Allergy Unknown per Uncoded 12/22/20 12:24 dogs allergy testing Naproxen Allergy Unknown rash Uncoded 12/22/20 12:24 Tramadol Allergy Unknown rash Uncoded 12/22/20 12:24 vicodin Allergy Unknown rash Uncoded 12/22/20 12:24 Assessment & Plan Assessment & Plan (1) Acute psychosis: Status: Acute Code(s): F23 - Brief psychotic disorder Assessment and Plan: started olanzapine 10 mg at HS. psychosis 2/2 stimulant and/or cocaine use versus primary psychiatric disorder. delusional and paranoid. sleeping through the night. unclear if primary psychotic versus bipolar. non substantial improvement in Sx after 3 nights of zyprexa and reasonable sleep. zyprexa dosing increased from 10 mg QHS to 20 mg QHS as of 05/26. pt experienced akathisia 05/26 after zyprexa so dose was decreased to 15 mg QHS as of 05/27. pt has been largely incapacitated at home, spending much of her time since november in her bed and has also lost 35 pounds in that time frame per her mother. pt is assessed as gravely disabled and application for commitment was filed today. (2) Anemia: Status: Acute Code(s): D64.9 - Anemia, unspecified Assessment and Plan: 36-year-old woman admitted to under section 12 due to psychosis. Medical consultation was placed due to anemia. Patient did have significant drop in hemoglobin and hematocrit over the last 2 months. Patient denied any overt bleeding or blood in her stool. ear infection - augmentin for 5 days starting 05/25. Anemia. Significant drop in her hematocrit over the last 2 months. Uncooperative declined to have any blood work drawn orders placed for iron studies, stool occult orders will remain active and can be drawn when patient agrees. Consider following her hemoglobin and hematocrit Mild hypotension. May be secondary to anemia versus dehydration/volume depletion Not on any antihypertensives Monitor blood pressure encourage oral intake Dermatosis. No active infection noted Follow-up with dermatology as outpatient as needed Declined Samuel stockings for compression of chronic edema Mental health. Management as per psychiatric team Attending Dr. Wilson Greater than 50% of the session was spent on counseling and/or coordination of care Reason for contiued inpatient stay Substantial Risk for: inability to function
[2021-05-27] MEDS: OLANZapine ODT 10 MG TAB.RAPDIS 15 MG TRANSLINGU (20:34)
[2021-05-27] MEDS: PARoxetine HCL 30 MG TABLET PO (20:36)
[2021-05-27] MEDS: hydrOXYzine HCL 25 MG TABLET 50 MG PO (20:36)
[2021-05-27 20:42] VITALS: BP 140/75; PULSE 96; TEMP 36.8; O2SAT 98
[2021-05-28] MEDS: Amoxicillin/Potassium Clav 875 MG TABLET PO ×2 (08:44→17:54)
[2021-05-28 10:19] VITALS: BP 135/78; PULSE 98; RESP 18; TEMP 36.9; O2SAT 96
--- NOTE | 2021-05-28 11:51 | HO.PSYCHPN ---
Subjective Subjective Date of Service: 05/28/21 Reason For Visit: Psychosis Interim History: per staff, pt out of her room for brief periods yesterday, otherwise isolative to her room and remaining in bed. on interview with MD pt was found mid-morning lying in her bed. she was awake or easily rousable. she was irritable with MD and stated she was still trying to sleep and she did not wish to meet with MD. Mental Status Exam Mental Status Exam Narrative: lying in bed in position, blanket over her head/face (variably sitting up to address MD, showing her face, and then lying back down and hiding her face again). PMA of agitated risings from the right lateral decubitus position, though less agitated than on previous days. not cooperative with interview. speech incr in rate, amount, loudness. nml prosody, decr latency. thoughts linear and logical in brief exchange. hyperintense and labile, though less so than previously in this stay. mood not assessed. no SI/HI/AVH expressed. Diagnostics Vital Signs (24Hr): Vital Signs - 24 hr 05/27/21 20:42 05/28/21 10:19 Temperature 98.3 F 98.5 F Pulse Rate 96 98 Respiratory Rate 18 Blood Pressure 140/75 H 135/78 Pulse Oximetry 98 96 Body Mass Index 24.5 Labs Results: 05/21/21 22:20 05/21/21 22:20 Medications Medications Current Medications Generic Name Dose Route Start Last Admin Trade Name Freq PRN Reason Stop Dose Admin Al Hydroxide/Mg Hydroxide 30 ml 05/22/21 16:34 Magnesium Hydrox/Alum Hydrox 30 Ml Oral.Susp PO Q6H PRN Heartburn/Nausea Amoxicillin/Clavulanate Potassium 875 mg 05/25/21 18:00 05/28/21 08:44 Amoxicillin/Potassium Clav 875 Mg Tablet PO 05/30/21 06:01 875 mg Q12H IRAIS Administration Hydroxyzine HCl 50 mg 05/22/21 01:30 05/27/21 20:36 Hydroxyzine Hcl 25 Mg Tablet PO 50 mg BEDTIME IRAIS Administration Hydroxyzine HCl 25 mg 05/22/21 16:34 Hydroxyzine Hcl 25 Mg Tablet PO BEDTIME PRN Anxiety Magnesium Hydroxide 30 ml 05/22/21 16:34 Milk Of Magnesia 30 Ml Oral.Susp PO DAILY PRN Constipation Nicotine Polacrilex 4 mg 05/22/21 16:34 Nicotine Polacrilex 2 Mg Gum BUCCAL Q2H PRN Nicotine Cravings Olanzapine 15 mg 05/27/21 21:00 05/27/21 20:34 Olanzapine Odt 10 Mg Tab.Rapdis TRANSLINGU 15 mg BEDTIME IRAIS Administration Paroxetine HCl 30 mg 05/22/21 21:00 05/27/21 20:36 Paroxetine Hcl 30 Mg Tablet PO 30 mg BEDTIME IRAIS Administration Trazodone HCl 50 mg 05/22/21 16:34 Trazodone Hcl 50 Mg Tablet PO BEDTIME PRN Insomnia Allergies Allergies Allergy/AdvReac Type Severity Reaction Status Date / Time adhesive [ADHESIVE] Allergy Intermediate RED RASH Verified 12/22/20 12:24 nickel [NICKEL] Allergy Intermediate RASH Verified 12/22/20 12:24 tramadol [TRAMADOL] Allergy Intermediate NAUSEA & Verified 12/22/20 12:24 VOMITING,RASH acetaminophen [From VICODIN] Allergy Unknown RASH Verified 12/22/20 12:24 hydrocodone [From VICODIN] Allergy Unknown RASH Verified 12/22/20 12:24 naproxen [NAPROXEN] Allergy Unknown GI Verified 12/22/20 12:24 UPSET,RASH Nickel Allergy Unknown rash Verified 12/22/20 12:24 Adhesive Allergy Unknown rash Uncoded 12/22/20 12:24 adhesive tape Allergy Unknown rash Uncoded 12/22/20 12:24 MOLD TREES WEEDS cats DOGS Allergy Unknown PER Uncoded 12/22/20 12:24 ALLERGY TESTING Mold, weeds, trees, cats, Allergy Unknown per Uncoded 12/22/20 12:24 dogs allergy testing Naproxen Allergy Unknown rash Uncoded 12/22/20 12:24 Tramadol Allergy Unknown rash Uncoded 12/22/20 12:24 vicodin Allergy Unknown rash Uncoded 12/22/20 12:24 Assessment & Plan Assessment & Plan (1) Acute psychosis: Status: Acute Code(s): F23 - Brief psychotic disorder Assessment and Plan: started olanzapine 10 mg at HS. psychosis 2/2 stimulant and/or cocaine use versus primary psychiatric disorder. delusional and paranoid. sleeping through the night. unclear if primary psychotic versus bipolar. non substantial improvement in Sx after 3 nights of zyprexa and reasonable sleep. zyprexa dosing increased from 10 mg QHS to 20 mg QHS as of 05/26. pt experienced akathisia 05/26 after zyprexa so dose was decreased to 15 mg QHS as of 05/27. no akathisia reported after 15 mg dose. pt has been largely incapacitated at home, spending much of her time since november in her bed and has also lost 35 pounds in that time frame per her mother. pt is assessed as gravely disabled and application for commitment was filed 05/27/21. (2) Anemia: Status: Acute Code(s): D64.9 - Anemia, unspecified Assessment and Plan: 36-year-old woman admitted to under section 12 due to psychosis. Medical consultation was placed due to anemia. Patient did have significant drop in hemoglobin and hematocrit over the last 2 months. Patient denied any overt bleeding or blood in her stool. ear infection - augmentin for 5 days starting 05/25. Anemia. Significant drop in her hematocrit over the last 2 months. Uncooperative declined to have any blood work drawn orders placed for iron studies, stool occult orders will remain active and can be drawn when patient agrees. Consider following her hemoglobin and hematocrit Mild hypotension. May be secondary to anemia versus dehydration/volume depletion Not on any antihypertensives Monitor blood pressure encourage oral intake Dermatosis. No active infection noted Follow-up with dermatology as outpatient as needed Declined Samuel stockings for compression of chronic edema Mental health. Management as per psychiatric team Attending Dr. Wilson Greater than 50% of the session was spent on counseling and/or coordination of care Reason for contiued inpatient stay Substantial Risk for: inability to function and rapid decompensation
[2021-05-28 18:00] VITALS: BP 124/73; PULSE 108; RESP 20; TEMP 37.1; O2SAT 96
[2021-05-28] MEDS: hydrOXYzine HCL 25 MG TABLET 50 MG PO (19:59)
[2021-05-28] MEDS: PARoxetine HCL 30 MG TABLET PO (19:59)
[2021-05-28] MEDS: Acetaminophen 325 MG TABLET 650 MG PO (20:16)
[2021-05-28] MEDS: OLANZapine ODT 10 MG TAB.RAPDIS 15 MG TRANSLINGU (21:16)
[2021-05-29] MEDS: Amoxicillin/Potassium Clav 875 MG TABLET PO ×2 (07:58→17:10)
[2021-05-29 08:07] VITALS: BP 158/81; PULSE 100; RESP 18; TEMP 36.4; O2SAT 99
--- NOTE | 2021-05-29 12:13 | HO.PSYCHPN ---
Subjective Subjective Date of Service: 05/29/21 Reason For Visit: Psychosis Interim History: per staff, pt isolative to her room and remaining in bed. irritable. on interview with pt was found mid-morning lying in her bed. she was awake or easily rousable. she was irritable with MD, castigating this technical document writer for never having had a conversation with her. MD attempts once again to engage her in conversation, which she does for 10 minutes or so, saying that her mother is crazy and lies about things and should be the one in the hospital and that her sister who visited her lives across the [address] and doesn't really know anything about her. she threatens to alvarado the [employer] to recoup the $250 she paid for a ticket to see [facility] next tuesday if she is not released by then. she dismisses MD's expressed concern about her weight loss and that it might be connected to her mental health. MD broaches her akathisia in response to olanzapine and MD states he will lower the dose back to 10 mg at bedtime; she responds that she will not be taking the medication. she states she wants a new doctor and does not wish to speak with this technical document writer ever again. Mental Status Exam Mental Status Exam Narrative: lying in bed in position, blanket over her head/face (variably sitting up to address MD, showing her face, and then lying back down and hiding her face again). PMA of agitated risings, though less agitated than on previous days. moderately cooperative with interview. speech incr in rate, amount, loudness. nml prosody, decr latency. thoughts linear and logical in brief exchange. hyperintense and labile, though less so than previously in this stay. mood not assessed. no SI/HI/AVH expressed. Diagnostics Vital Signs (24Hr): Vital Signs - 24 hr 05/28/21 18:00 05/29/21 08:07 Temperature 98.7 F 97.6 F Pulse Rate 108 H 100 Respiratory Rate 20 18 Blood Pressure 124/73 158/81 H Pulse Oximetry 96 99 Body Mass Index 24.5 Labs Results: 05/21/21 22:20 05/21/21 22:20 Medications Medications Current Medications Generic Name Dose Route Start Last Admin Trade Name Freq PRN Reason Stop Dose Admin Acetaminophen 650 mg 05/28/21 20:02 05/28/21 20:16 Acetaminophen 325 Mg Tablet PO 650 mg Q6H PRN Administration Pain, Mild (Pain Scale 1-3) Al Hydroxide/Mg Hydroxide 30 ml 05/22/21 16:34 Magnesium Hydrox/Alum Hydrox 30 Ml Oral.Susp PO Q6H PRN Heartburn/Nausea Amoxicillin/Clavulanate Potassium 875 mg 05/25/21 18:00 05/29/21 07:58 Amoxicillin/Potassium Clav 875 Mg Tablet PO 05/30/21 06:01 875 mg Q12H IRAIS Administration Hydroxyzine HCl 50 mg 05/22/21 01:30 05/28/21 19:59 Hydroxyzine Hcl 25 Mg Tablet PO 50 mg BEDTIME IRAIS Administration Hydroxyzine HCl 25 mg 05/22/21 16:34 Hydroxyzine Hcl 25 Mg Tablet PO BEDTIME PRN Anxiety Magnesium Hydroxide 30 ml 05/22/21 16:34 Milk Of Magnesia 30 Ml Oral.Susp PO DAILY PRN Constipation Nicotine Polacrilex 4 mg 05/22/21 16:34 Nicotine Polacrilex 2 Mg Gum BUCCAL Q2H PRN Nicotine Cravings Olanzapine 15 mg 05/27/21 21:00 05/28/21 21:16 Olanzapine Odt 10 Mg Tab.Rapdis TRANSLINGU 15 mg BEDTIME IRAIS Administration Paroxetine HCl 30 mg 05/22/21 21:00 05/28/21 19:59 Paroxetine Hcl 30 Mg Tablet PO 30 mg BEDTIME IRAIS Administration Trazodone HCl 50 mg 05/22/21 16:34 Trazodone Hcl 50 Mg Tablet PO BEDTIME PRN Insomnia Allergies Allergies Allergy/AdvReac Type Severity Reaction Status Date / Time adhesive [ADHESIVE] Allergy Intermediate RED RASH Verified 12/22/20 12:24 nickel [NICKEL] Allergy Intermediate RASH Verified 12/22/20 12:24 tramadol [TRAMADOL] Allergy Intermediate NAUSEA & Verified 12/22/20 12:24 VOMITING,RASH hydrocodone [From VICODIN] Allergy Unknown RASH Verified 12/22/20 12:24 naproxen [NAPROXEN] Allergy Unknown GI Verified 12/22/20 12:24 UPSET,RASH Nickel Allergy Unknown rash Verified 12/22/20 12:24 Adhesive Allergy Unknown rash Uncoded 12/22/20 12:24 adhesive tape Allergy Unknown rash Uncoded 12/22/20 12:24 MOLD TREES WEEDS cats DOGS Allergy Unknown PER Uncoded 12/22/20 12:24 ALLERGY TESTING Mold, weeds, trees, cats, Allergy Unknown per Uncoded 12/22/20 12:24 dogs allergy testing Naproxen Allergy Unknown rash Uncoded 12/22/20 12:24 Tramadol Allergy Unknown rash Uncoded 12/22/20 12:24 vicodin Allergy Unknown rash Uncoded 12/22/20 12:24 Assessment & Plan Assessment & Plan (1) Acute psychosis: Status: Acute Code(s): F23 - Brief psychotic disorder Assessment and Plan: started olanzapine 10 mg at HS. psychosis 2/2 stimulant and/or cocaine use versus primary psychiatric disorder. delusional and paranoid. sleeping through the night. unclear if primary psychotic versus bipolar. non substantial improvement in Sx after 3 nights of zyprexa and reasonable sleep. zyprexa dosing increased from 10 mg QHS to 20 mg QHS as of 05/26. pt experienced akathisia 05/26 after zyprexa so dose was decreased to 15 mg QHS as of 05/27. no akathisia reported after 15 mg dose on first night, but akathisia reported on second night. dosing decreased back to 10 mg nightly as of 05/29. pt has been largely incapacitated at home, spending much of her time since november in her bed and has also lost 35 pounds in that time frame per her mother. pt is assessed as gravely disabled and application for commitment was filed 05/27/21. (2) Anemia: Status: Acute Code(s): D64.9 - Anemia, unspecified Assessment and Plan: 36-year-old woman admitted to under section 12 due to psychosis. Medical consultation was placed due to anemia. Patient did have significant drop in hemoglobin and hematocrit over the last 2 months. Patient denied any overt bleeding or blood in her stool. ear infection - augmentin for 5 days starting 05/25. Anemia. Significant drop in her hematocrit over the last 2 months. Uncooperative declined to have any blood work drawn orders placed for iron studies, stool occult orders will remain active and can be drawn when patient agrees. Consider following her hemoglobin and hematocrit Mild hypotension. May be secondary to anemia versus dehydration/volume depletion Not on any antihypertensives Monitor blood pressure encourage oral intake Dermatosis. No active infection noted Follow-up with dermatology as outpatient as needed Declined Samuel stockings for compression of chronic edema Mental health. Management as per psychiatric team Attending Dr. Wilson Greater than 50% of the session was spent on counseling and/or coordination of care Reason for contiued inpatient stay Substantial Risk for: inability to function and rapid decompensation
[2021-05-29] MEDS: chlorproMAZINE HCl 25 MG TABLET 50 MG PO (14:55)
[2021-05-29] MEDS: Acetaminophen 325 MG TABLET 650 MG PO (17:28)
[2021-05-29 18:00] VITALS: BP 113/62; PULSE 121; RESP 18; TEMP 36.5; O2SAT 99
--- NOTE | 2021-05-29 18:04 | HO.PM.IMPN ---
Subjective Subjective Date of Service: 05/29/21 Interval History: called by psychiatrist to re-assess pt's R ear reference made to medical H+P 05/23/21 and f/u note 05/25/21 on 05/25/21, pt was started on amoxicillin/clavulanate x5d however, pt c/o worsening pain and then yesterday started having whitish/yellow drainage like vanilla pudding no fever/chills; however, can't hear out of the R ear had myringotomy tube 1 yr ago, followed by ENT at [facility] [place] Review of Systems Review of Systems: Yes all other systems are reviewed and are negative Physical Exam Vital Signs: Vital Signs: Last Vital Signs Temp 97.6 F 05/29/21 08:07 Pulse 100 05/29/21 08:07 Resp 18 05/29/21 08:07 BP 158/81 H 05/29/21 08:07 Pulse Ox 99 05/29/21 08:07 Body Mass Index 24.5 gen: NAD HEENT: L TM normal, R ear with no mastoid tenderness, mild pain with tragus manipulation, opacification of the R TM with perforation and purulent discharge Objective Data Current Medications Generic Name Dose Route Start Last Admin Trade Name Freq PRN Reason Stop Dose Admin Acetaminophen 650 mg 05/28/21 20:02 05/29/21 17:28 Acetaminophen 325 Mg Tablet PO 650 mg Q6H PRN Administration Pain, Mild (Pain Scale 1-3) Al Hydroxide/Mg Hydroxide 30 ml 05/22/21 16:34 Magnesium Hydrox/Alum Hydrox 30 Ml Oral.Susp PO Q6H PRN Heartburn/Nausea Amoxicillin/Clavulanate Potassium 875 mg 05/25/21 18:00 05/29/21 17:10 Amoxicillin/Potassium Clav 875 Mg Tablet PO 05/30/21 06:01 875 mg Q12H IRAIS Administration Chlorpromazine HCl 50 mg 05/29/21 14:44 05/29/21 14:55 Chlorpromazine Hcl 25 Mg Tablet PO 50 mg Q4H PRN Administration agitation Hydroxyzine HCl 50 mg 05/22/21 01:30 05/28/21 19:59 Hydroxyzine Hcl 25 Mg Tablet PO 50 mg BEDTIME IRAIS Administration Hydroxyzine HCl 25 mg 05/22/21 16:34 Hydroxyzine Hcl 25 Mg Tablet PO BEDTIME PRN Anxiety Ibuprofen 800 mg 05/29/21 14:43 Ibuprofen 800 Mg Tablet PO Q6H PRN Pain, Moderate (Pain Scale 4-6 Magnesium Hydroxide 30 ml 05/22/21 16:34 Milk Of Magnesia 30 Ml Oral.Susp PO DAILY PRN Constipation Nicotine Polacrilex 4 mg 05/22/21 16:34 Nicotine Polacrilex 2 Mg Gum BUCCAL Q2H PRN Nicotine Cravings Olanzapine 10 mg 05/29/21 21:00 Olanzapine Odt 10 Mg Tab.Rapdis TRANSLINGU BEDTIME IRAIS Paroxetine HCl 30 mg 05/22/21 21:00 05/28/21 19:59 Paroxetine Hcl 30 Mg Tablet PO 30 mg BEDTIME IRAIS Administration Trazodone HCl 50 mg 05/22/21 16:34 Trazodone Hcl 50 Mg Tablet PO BEDTIME PRN Insomnia Labs CBC & Chem 7: 05/21/21 22:20 05/21/21 22:20 Quality Stroke Does the patient have a stroke diagnosis?: No VTE Prior VTE?: No VTE Risk Level:: Medical - low VTE Device Contraindication: N/A - Device Ordered VTE Drug Contraindication: N/A - Med Ordered Assessment and Plan (1) Acute otitis media with perforated tympanic membrane: Status: Acute Assessment and Plan: Change to cefdinir 500 mg bid x10d Cousneled to not get any water in the R ear and to be particularly careful when showering Reassured that most perforations heal on their own Counseled to f/u with ENT after discharge from , especially if hearing loss persists for more than 2 weeks
[2021-05-29] MEDS: hydrOXYzine HCL 25 MG TABLET 50 MG PO (20:10)
[2021-05-29] MEDS: OLANZapine ODT 10 MG TAB.RAPDIS TRANSLINGU (20:11)
[2021-05-29] MEDS: PARoxetine HCL 30 MG TABLET PO (20:11)
[2021-05-30 06:00] VITALS: BP 120/69; PULSE 107; RESP 16; TEMP 37.2; O2SAT 98
--- NOTE | 2021-05-30 09:08 | PC.NURSE ---
Patient asked if MD ordered pain medication for her ear. Informed they did not however would follow up today. Patient refused AB stating I wish you all had a hole in your ear .
[2021-05-30] MEDS: oxyCODONE HCl Immed Release 5 MG TABLET PO ×2 (12:52→20:43)
--- NOTE | 2021-05-30 12:55 | HO.PSYCHPN ---
Subjective Subjective Date of Service: 05/30/21 Reason For Visit: Psychosis Subjective Notes: Section 7 Medication Compliance: No Side effects from medications: No Attending Groups: No Review of Systems Review of Systems co pain in her ear- Mental Status Exam Mental Status Exam Narrative: patient lying in bed, minimally cooperative till she hears she will get pain med- Then told me her story Patient Appearance: Disheveled and Unkempt Patient Orientation: Person, Place, Time and Situation Level of Consciousness: Awake Patient Behavior: Guarded and Good Eye Contact Behavior Comments: irritable Affect Description: Suspicious (in untrusting way) Patient Cognition Impaired: No Ability to Follow Directions: Fair Speech Pattern: Clear Thought Process: Goal Oriented Thought Content: positive for Perseveration (about having been wronged by mother putting her in here and daughter's father ) Depressive Symptoms: Increased Irritability Judgement: Fair Diagnostics Vital Signs (24Hr): Vital Signs - 24 hr 05/29/21 18:00 05/30/21 06:00 Temperature 97.7 F 98.9 F Pulse Rate 121 H 107 H Respiratory Rate 18 16 Blood Pressure 113/62 120/69 Pulse Oximetry 99 98 Body Mass Index 24.5 Labs Results: 05/21/21 22:20 05/21/21 22:20 Medications Medications Current Medications Generic Name Dose Route Start Last Admin Trade Name Freq PRN Reason Stop Dose Admin Acetaminophen 650 mg 05/28/21 20:02 05/29/21 17:28 Acetaminophen 325 Mg Tablet PO 650 mg Q6H PRN Administration Pain, Mild (Pain Scale 1-3) Al Hydroxide/Mg Hydroxide 30 ml 05/22/21 16:34 Magnesium Hydrox/Alum Hydrox 30 Ml Oral.Susp PO Q6H PRN Heartburn/Nausea Cefuroxime Axetil 500 mg 05/29/21 21:00 05/29/21 20:10 Cefuroxime Axetil 500 Mg Tablet PO 06/08/21 20:59 500 mg Q12H IRAIS Administration Chlorpromazine HCl 50 mg 05/29/21 14:44 05/29/21 14:55 Chlorpromazine Hcl 25 Mg Tablet PO 50 mg Q4H PRN Administration agitation Hydroxyzine HCl 50 mg 05/22/21 01:30 05/29/21 20:10 Hydroxyzine Hcl 25 Mg Tablet PO 50 mg BEDTIME IRAIS Administration Hydroxyzine HCl 25 mg 05/22/21 16:34 Hydroxyzine Hcl 25 Mg Tablet PO BEDTIME PRN Anxiety Ibuprofen 800 mg 05/29/21 14:43 Ibuprofen 800 Mg Tablet PO Q6H PRN Pain, Moderate (Pain Scale 4-6 Magnesium Hydroxide 30 ml 05/22/21 16:34 Milk Of Magnesia 30 Ml Oral.Susp PO DAILY PRN Constipation Nicotine Polacrilex 4 mg 05/22/21 16:34 Nicotine Polacrilex 2 Mg Gum BUCCAL Q2H PRN Nicotine Cravings Olanzapine 10 mg 05/29/21 21:00 05/29/21 20:11 Olanzapine Odt 10 Mg Tab.Rapdis TRANSLINGU 10 mg BEDTIME IRAIS Administration Oxycodone HCl 5 mg 05/30/21 11:41 Oxycodone Hcl Immed Release 5 Mg Tablet PO Q8H PRN ear pain Paroxetine HCl 30 mg 05/22/21 21:00 05/29/21 20:11 Paroxetine Hcl 30 Mg Tablet PO 30 mg BEDTIME IRAIS Administration Trazodone HCl 50 mg 05/22/21 16:34 Trazodone Hcl 50 Mg Tablet PO BEDTIME PRN Insomnia Allergies Allergies Allergy/AdvReac Type Severity Reaction Status Date / Time adhesive [ADHESIVE] Allergy Intermediate RED RASH Verified 12/22/20 12:24 nickel [NICKEL] Allergy Intermediate RASH Verified 12/22/20 12:24 tramadol [TRAMADOL] Allergy Intermediate NAUSEA & Verified 12/22/20 12:24 VOMITING,RASH hydrocodone [From VICODIN] Allergy Unknown RASH Verified 12/22/20 12:24 naproxen [NAPROXEN] Allergy Unknown GI Verified 12/22/20 12:24 UPSET,RASH Nickel Allergy Unknown rash Verified 12/22/20 12:24 Adhesive Allergy Unknown rash Uncoded 12/22/20 12:24 adhesive tape Allergy Unknown rash Uncoded 12/22/20 12:24 MOLD TREES WEEDS cats DOGS Allergy Unknown PER Uncoded 12/22/20 12:24 ALLERGY TESTING Mold, weeds, trees, cats, Allergy Unknown per Uncoded 12/22/20 12:24 dogs allergy testing Naproxen Allergy Unknown rash Uncoded 12/22/20 12:24 Tramadol Allergy Unknown rash Uncoded 12/22/20 12:24 vicodin Allergy Unknown rash Uncoded 12/22/20 12:24 Assessment & Plan Assessment & Plan (1) Acute otitis media with perforated tympanic membrane: Status: Acute Code(s): H66.90 - Otitis media, unspecified, unspecified ear; H72.90 - Unspecified perforation of tympanic membrane, unspecified ear Assessment and Plan: Change to cefdinir 500 mg bid x10d Cousneled to not get any water in the R ear and to be particularly careful when showering Reassured that most perforations heal on their own Counseled to f/u with ENT after discharge from , especially if hearing loss persists for more than 2 weeks given pain medications- pt refused abiotic - (holding out for pain med?) (2) Acute psychosis: Status: Acute Code(s): F23 - Brief psychotic disorder Assessment and Plan: angry at her own mother we never get along when live together pt has been on unemployment, had plan to move to [place] and patricdanika (14) was going to go with her for first part of trip till daughter's father changed his mind and went to court to stop her from taking her (though patricther was going to come back and live with him- (I believe this is daughter's primary plant care worker the father) Greater than 50% of the session was spent on counseling and/or coordination of care Reason for contiued inpatient stay Substantial Risk for: inability to function and rapid decompensation
[2021-05-30] MEDS: Acetaminophen 325 MG TABLET 650 MG PO (20:16)
[2021-05-30] MEDS: PARoxetine HCL 30 MG TABLET PO (20:44)
[2021-05-30] MEDS: hydrOXYzine HCL 25 MG TABLET 50 MG PO (20:44)
[2021-05-30 20:45] VITALS: BP 145/98; PULSE 101; O2SAT 100
[2021-05-30] MEDS: OLANZapine ODT 10 MG TAB.RAPDIS TRANSLINGU (20:48)
[2021-05-31 06:00] VITALS: BP 134/85; PULSE 116; RESP 16; TEMP 36.3; O2SAT 100
[2021-05-31] MEDS: oxyCODONE HCl Immed Release 5 MG TABLET PO ×3 (09:05→20:59)
[2021-05-31] MEDS: Acetaminophen 325 MG TABLET 650 MG PO ×2 (10:39→17:28)
--- NOTE | 2021-05-31 14:40 | HO.PSYCHPN ---
Subjective Subjective Date of Service: 05/31/21 Reason For Visit: Psychosis Subjective Notes: Section 12B Healthcare Proxy: No Guardianship: No Medical Problems Affecting Mental Status: Yes (ear pain/infection- making her more irritable?) Interim History: 36 yo WF angry about her dinner tray mix up last night didn't get dinner, luckly her sister brought her food- Pt angry that parents house, mom lied and go her in here- says things always go wrong when she lives there including gets a rash when she is there. Describes 11/2020 started adderall from PA at [facility] in [place] as she was working winter and needed it for hx adhd in teens had been on it- for focus Then stopped sleeping and eating- was taken off adderall and put on paxil by PA - which she had been on in with good effect on her anxiety- Still not sleeping and trouble eating- Also reports that someone changed the seats in her car, and that the urine we got on her was not hers' I didn't do cocaine Says she had dual phyiscal/legal custody of 14 yo daughter until recent court which she missed due to being here in [facility]- had hoped to bring daugther with her to [place] just for summer where patient plans to move. Medication Compliance: No Side effects from medications: No (? not sleeping/eating) Attending Groups: No Review of Systems Review of Systems ongoign ear pain, drainage - due to infection- felt something flew in there-....pt has other skin lesions maybe she had absess in ear/from skin? see hospitalist note Mental Status Exam Mental Status Exam Narrative: mildly unkempt female- idolating in her room - angry and irritable Patient Appearance: Unkempt Patient Orientation: Person Level of Consciousness: Awake Patient Behavior: Suspicious, Anxious, Isolative and Good Eye Contact Behavior Comments: called her doctor here Jayesh the molester Mood Description: Suspicious, Withdrawn and Angry Affect Description: Angry (irritable- for reason and for suspicion/sense of being mistreated) Patient Cognition Impaired: No Ability to Follow Directions: Fair Speech Pattern: Clear Memory Description: Intact Hallucinations: None Delusions: Paranoid Ideation Thought Process: Intact Thought Content: positive for Goal Oriented Depressive Symptoms: Insomnia and Significant Weight Loss Judgement: Poor Diagnostics Vital Signs (24Hr): Vital Signs - 24 hr 05/30/21 20:45 05/31/21 06:00 Temperature 97.3 F Pulse Rate 101 H 116 H Respiratory Rate 16 Blood Pressure 145/98 H 134/85 Pulse Oximetry 100 100 Body Mass Index 24.5 Labs Results: 05/21/21 22:20 05/21/21 22:20 Medications Medications Current Medications Generic Name Dose Route Start Last Admin Trade Name Freq PRN Reason Stop Dose Admin Acetaminophen 650 mg 05/28/21 20:02 05/31/21 10:39 Acetaminophen 325 Mg Tablet PO 650 mg Q6H PRN Administration Pain, Mild (Pain Scale 1-3) Al Hydroxide/Mg Hydroxide 30 ml 05/22/21 16:34 Magnesium Hydrox/Alum Hydrox 30 Ml Oral.Susp PO Q6H PRN Heartburn/Nausea Cefuroxime Axetil 500 mg 05/29/21 21:00 05/31/21 09:00 Cefuroxime Axetil 500 Mg Tablet PO 06/08/21 20:59 500 mg Q12H IRAIS Administration Chlorpromazine HCl 50 mg 05/29/21 14:44 05/29/21 14:55 Chlorpromazine Hcl 25 Mg Tablet PO 50 mg Q4H PRN Administration agitation Hydroxyzine HCl 50 mg 05/22/21 01:30 05/30/21 20:44 Hydroxyzine Hcl 25 Mg Tablet PO 50 mg BEDTIME IRAIS Administration Hydroxyzine HCl 25 mg 05/22/21 16:34 Hydroxyzine Hcl 25 Mg Tablet PO BEDTIME PRN Anxiety Ibuprofen 800 mg 05/29/21 14:43 Ibuprofen 800 Mg Tablet PO Q6H PRN Pain, Moderate (Pain Scale 4-6 Magnesium Hydroxide 30 ml 05/22/21 16:34 Milk Of Magnesia 30 Ml Oral.Susp PO DAILY PRN Constipation Nicotine Polacrilex 4 mg 05/22/21 16:34 Nicotine Polacrilex 2 Mg Gum BUCCAL Q2H PRN Nicotine Cravings Olanzapine 10 mg 05/29/21 21:00 05/30/21 20:48 Olanzapine Odt 10 Mg Tab.Rapdis TRANSLINGU 10 mg BEDTIME IRAIS Administration Oxycodone HCl 5 mg 05/31/21 13:01 Oxycodone Hcl Immed Release 5 Mg Tablet PO Q6H PRN ear pain Paroxetine HCl 30 mg 05/22/21 21:00 05/30/21 20:44 Paroxetine Hcl 30 Mg Tablet PO 30 mg BEDTIME IRAIS Administration Quetiapine Fumarate 50 mg 05/31/21 13:01 Quetiapine Fumarate 50 Mg Tablet PO BEDTIME MRX1 PRN insomnia Allergies Allergies Allergy/AdvReac Type Severity Reaction Status Date / Time adhesive [ADHESIVE] Allergy Intermediate RED RASH Verified 12/22/20 12:24 nickel [NICKEL] Allergy Intermediate RASH Verified 12/22/20 12:24 tramadol [TRAMADOL] Allergy Intermediate NAUSEA & Verified 12/22/20 12:24 VOMITING,RASH hydrocodone [From VICODIN] Allergy Unknown RASH Verified 12/22/20 12:24 naproxen [NAPROXEN] Allergy Unknown GI Verified 12/22/20 12:24 UPSET,RASH Nickel Allergy Unknown rash Verified 12/22/20 12:24 Adhesive Allergy Unknown rash Uncoded 12/22/20 12:24 adhesive tape Allergy Unknown rash Uncoded 12/22/20 12:24 MOLD TREES WEEDS cats DOGS Allergy Unknown PER Uncoded 12/22/20 12:24 ALLERGY TESTING Mold, weeds, trees, cats, Allergy Unknown per Uncoded 12/22/20 12:24 dogs allergy testing Naproxen Allergy Unknown rash Uncoded 12/22/20 12:24 Tramadol Allergy Unknown rash Uncoded 12/22/20 12:24 vicodin Allergy Unknown rash Uncoded 12/22/20 12:24 Assessment & Plan Assessment & Plan (1) Acute otitis media with perforated tympanic membrane: Status: Acute Code(s): H66.90 - Otitis media, unspecified, unspecified ear; H72.90 - Unspecified perforation of tympanic membrane, unspecified ear Assessment and Plan: Change to cefdinir 500 mg bid x10d Cousneled to not get any water in the R ear and to be particularly careful when showering Reassured that most perforations heal on their own Counseled to f/u with ENT after discharge from , especially if hearing loss persists for more than 2 weeks given pain medications- pt refused abiotic - (holding out for pain med?) (2) Acute psychosis: Status: Acute Code(s): F23 - Brief psychotic disorder Assessment and Plan: denies urine was hers that showed cocaine, did say her seats in her car where changed , when asked how- she said someone put them in which seems quite odd and unusual and improbable had extreme negative reaction to her md on unit- would not talk to him at all ? trauma response vs psychosis- dc paxil as not appropriate if adderall triggered roberto- (sleepless ness, paranoia?) Greater than 50% of the session was spent on counseling and/or coordination of care Reason for contiued inpatient stay Substantial Risk for: rapid decompensation and med/psych decompensation (given poor eating.)
[2021-05-31 18:00] VITALS: BP 148/84; PULSE 104; RESP 18; TEMP 36.8; O2SAT 100
[2021-05-31] MEDS: OLANZapine ODT 10 MG TAB.RAPDIS TRANSLINGU (20:59)
[2021-05-31] MEDS: hydrOXYzine HCL 25 MG TABLET 50 MG PO (21:00)
[2021-06-01] MEDS: oxyCODONE HCl Immed Release 5 MG TABLET PO ×3 (07:39→20:07)
[2021-06-01 10:16] VITALS: BP 104/55; PULSE 113; RESP 18; TEMP 37.1; O2SAT 98
[2021-06-01] MEDS: Acetaminophen 325 MG TABLET 650 MG PO ×2 (11:34→17:26)
--- NOTE | 2021-06-01 13:30 | P.PNPSI_ITS ---
Subjective Subjective Date of Service: 06/01/21 Reason For Visit: Mixed Charla Interim History: pt appears mildly less irritable and oppositional than last week. wearing heavy make-up around the eyes, not having her face covered in bed. states MD cannot have an opinion about her bcse he has never really spoken with her, which is something she has said in the past (after which we had a c onversation of at least 10 minutes, as we did again today). she states she is not psychotic and has no delusions nor hears voices nor slits her wrists. she squarely blames her mother a misinformed and potentially malign mechanic general operational test. she states her mother has always said things which have turned pt and her sisters against one another. she casts the idea she has charla as an absurd one, just after having told an anecdote of her having stayed up for 5 or 6 nights straight and then sleeping for a couple of days (this MD noted to pt that MD had never mentioned anything about the possibility of charla to pt). pt takes MD to [facility] to find a nurse whom she feels has information supportive of her leaving; she interrogates the nurse to say that the nurse has only experienced her as pleasant and has not observed any behavior which would make the nurse think she were experiencing AH or having expressed clear delusions. pt states she is only upset around MD bcse she does not like MD; pt begins to cry. interview is returned to her room. pt continues to escalate, yelling, ultimately telling MD she does not wish to speak with him and wants a new doctor. MD leaves her presence. per staff, pt not attending groups in general. attending to ADLs. oxycodone PRN ear pain. attended one group last night, however - art group. taking meds. Mental Status Exam Mental Status Exam Narrative: lying in bed in position, blanket not covering her head/face (variably sitting up to address MD, and then lying back down). PMA of agitated risings, though less agitated than on previous days. moderately cooperative with interview. speech incr in rate, amount, loudness. nml prosody, decr latency. thoughts linear and logical in brief exchange. hyperintense and labile. mood not assessed. no SI/HI/AVH expressed. Diagnostics Vital Signs (24Hr): Vital Signs - 24 hr 05/31/21 18:00 07/19/21 10:16 Temperature 98.2 F 98.7 F Pulse Rate 104 H 113 H Respiratory Rate 18 18 Blood Pressure 148/84 H 104/55 L Pulse Oximetry 100 98 Body Mass Index 24.5 Labs Results: 05/21/21 22:20 05/21/21 22:20 Medications Medications Current Medications Generic Name Dose Route Start Last Admin Trade Name Freq PRN Reason Stop Dose Admin Acetaminophen 650 mg 05/28/21 20:02 06/01/21 11:34 Acetaminophen 325 Mg Tablet PO 650 mg Q6H PRN Administration Pain, Mild (Pain Scale 1-3) Al Hydroxide/Mg Hydroxide 30 ml 05/22/21 16:34 Magnesium Hydrox/Alum Hydrox 30 Ml Oral.Susp PO Q6H PRN Heartburn/Nausea Cefuroxime Axetil 500 mg 05/29/21 21:00 06/01/21 07:39 Cefuroxime Axetil 500 Mg Tablet PO 06/08/21 20:59 500 mg Q12H IRAIS Administration Chlorpromazine HCl 50 mg 05/29/21 14:44 05/29/21 14:55 Chlorpromazine Hcl 25 Mg Tablet PO 50 mg Q4H PRN Administration agitation Hydroxyzine HCl 50 mg 05/22/21 01:30 05/31/21 21:00 Hydroxyzine Hcl 25 Mg Tablet PO 50 mg BEDTIME IRAIS Administration Hydroxyzine HCl 25 mg 05/22/21 16:34 Hydroxyzine Hcl 25 Mg Tablet PO BEDTIME PRN Anxiety [place] Carbonate 900 mg 06/01/21 21:00 [place] Carbonate Er 450 Mg Tablet.Er PO BEDTIME IRAIS Magnesium Hydroxide 30 ml 05/22/21 16:34 Milk Of Magnesia 30 Ml Oral.Susp PO DAILY PRN Constipation Nicotine Polacrilex 4 mg 05/22/21 16:34 Nicotine Polacrilex 2 Mg Gum BUCCAL Q2H PRN Nicotine Cravings Olanzapine 10 mg 05/29/21 21:00 05/31/21 20:59 Olanzapine Odt 10 Mg Tab.Rapdis TRANSLINGU 10 mg BEDTIME IRAIS Administration Ondansetron HCl 4 mg 05/31/21 19:09 05/31/21 20:59 Ondansetron Odt 4 Mg Tab.Rapdis TRANSLINGU 4 mg Q6H PRN Administration Nausea Oxycodone HCl 5 mg 05/31/21 13:01 07/19/21 07:39 Oxycodone Hcl Immed Release 5 Mg Tablet PO 5 mg Q6H PRN Administration ear pain Quetiapine Fumarate 50 mg 05/31/21 13:01 Quetiapine Fumarate 50 Mg Tablet PO BEDTIME MRX1 PRN insomnia Allergies Allergies Allergy/AdvReac Type Severity Reaction Status Date / Time adhesive [ADHESIVE] Allergy Intermediate RED RASH Verified 12/22/20 12:24 nickel [NICKEL] Allergy Intermediate RASH Verified 12/22/20 12:24 tramadol [TRAMADOL] Allergy Intermediate NAUSEA & Verified 12/22/20 12:24 VOMITING,RASH hydrocodone [From VICODIN] Allergy Unknown RASH Verified 12/22/20 12:24 naproxen [NAPROXEN] Allergy Unknown GI Verified 12/22/20 12:24 UPSET,RASH Nickel Allergy Unknown rash Verified 12/22/20 12:24 Adhesive Allergy Unknown rash Uncoded 12/22/20 12:24 adhesive tape Allergy Unknown rash Uncoded 12/22/20 12:24 MOLD TREES WEEDS cats DOGS Allergy Unknown PER Uncoded 12/22/20 12:24 ALLERGY TESTING Mold, weeds, trees, cats, Allergy Unknown per Uncoded 12/22/20 12:24 dogs allergy testing Naproxen Allergy Unknown rash Uncoded 12/22/20 12:24 Tramadol Allergy Unknown rash Uncoded 12/22/20 12:24 vicodin Allergy Unknown rash Uncoded 12/22/20 12:24 Assessment & Plan Assessment & Plan (1) Acute otitis media with perforated tympanic membrane: Status: Acute Code(s): H66.90 - Otitis media, unspecified, unspecified ear; H72.90 - Unspecified perforation of tympanic membrane, unspecified ear Assessment and Plan: Change to cefdinir 500 mg bid x10d Cousneled to not get any water in the R ear and to be particularly careful when showering Reassured that most perforations heal on their own Counseled to f/u with ENT after discharge from , especially if hearing loss persists for more than 2 weeks given pain medications- pt refused abiotic - (holding out for pain med?) (2) Charla: Status: Acute Code(s): F30.9 - Manic episode, unspecified Assessment and Plan: started olanzapine 10 mg at HS. psychosis/charla 2/2 stimulant and/or cocaine use versus primary psychiatric disorder. delusional and paranoid. sleeping through the night. non substantial improvement in Sx after 3 nights of zyprexa and reasonable sleep. zyprexa dosing increased from 10 mg QHS to 20 mg QHS as of 05/26. pt experienced akathisia 05/26 after zyprexa so dose was decreased to 15 mg QHS as of 05/27. no akathisia reported after 15 mg dose on first night, but akathisia reported on second night. dosing decreased back to 10 mg nightly as of 05/29. paxil stopped over weekend due to increased likelihood of bipolar diathesis disorder; lithium added 06/01. pt has been largely incapacitated at home, spending much of her time since november in her bed and has also lost 35 pounds in that time frame per her mother. pt is assessed as gravely disabled and application for commitment was filed 05/27/21. Greater than 50% of the session was spent on counseling and/or coordination of care Reason for contiued inpatient stay Substantial Risk for: harm to self, harm to others, inability to function and rapid decompensation
[2021-06-01] MEDS: chlorproMAZINE HCl 25 MG TABLET 50 MG PO (15:35)
[2021-06-01] MEDS: hydrOXYzine HCL 25 MG TABLET 50 MG PO (20:07)
[2021-06-01] MEDS: Lithium Carbonate ER 450 MG TABLET.ER 900 MG PO (20:07)
[2021-06-01] MEDS: OLANZapine ODT 10 MG TAB.RAPDIS TRANSLINGU (20:07)
[2021-06-01 20:36] LABS: COVID-19 Test Negative (Negative); IDNOW Serial# 08D9AD1C
[2021-06-01 21:03] VITALS: BP 119/64; PULSE 101; TEMP 37.1
[2021-06-02] MEDS: oxyCODONE HCl Immed Release 5 MG TABLET PO (07:27)
[2021-06-02 07:33] VITALS: BP 120/76; PULSE 120; RESP 18; TEMP 36.7; O2SAT 96
[2021-06-02] MEDS: Acetaminophen 325 MG TABLET 650 MG PO (11:33)
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
--- NOTE | 2021-06-02 13:13 | PC.NURSE ---
PT aware and ready for discharge. PT denies SI/HI/AVH. Pt mood bright, pt denies anxiety and depression, pt future oriented. PT declined appointments to be made with her PCP and states she will make an appointment herself. PT ambulated off unit with steady gait.
== END 2021-06-02 13:13 | disposition home or self-care (01) | DRG 751 ==
LOC: HO.ED 05-22 10:34 → HO.PADLT16 05-22 14:02
PROVIDERS: Nurse Practitioner Family; Social Worker; Admitting Provider Psychiatry & Neurology Psychiatry; Emergency Provider Emergency Medicine Emergency Medical Services; Visit Provider Psychiatry & Neurology Psychiatry
DX: F23 Brief psychotic disorder (principal); I95.9 Hypotension, unspecified; D64.9 Anemia, unspecified; F14.10 Cocaine abuse, uncomplicated; H66.91 Otitis media, unspecified, right ear; F17.210 Nicotine dependence, cigarettes, uncomplicated; Z71.6 Tobacco abuse counseling; H72.91 Unspecified perforation of tympanic membrane, right ear; Z20.822 Contact with and (suspected) exposure to COVID-19; L98.9 Disorder of the skin and subcutaneous tissue, unspecified; R31.9 Hematuria, unspecified; Z88.5 Allergy status to narcotic agent; Z88.6 Allergy status to analgesic agent; Z79.899 Other long term (current) drug therapy
CPT/HCPCS: 36415; 80053; 80307; 81001; 81025; 82077; 84443; 85025; 87635; 99285

== ENCOUNTER → 2021-06-17 14:57 | Outpatient (BNVA) | payer OTHER, SELFPAY | PROVIDERS: Visit Provider Advanced Practice Midwife | DX: Z30.42 Encounter for surveillance of injectable contraceptive (principal) | CPT/HCPCS: 96372; 99211 ==

== ENCOUNTER 2021-09-02 11:01 | Outpatient (REF) | payer OTHER, SELFPAY ==
[2021-09-02 13:48] LABS: MANUAL DIFF FLAG NO
[2021-09-02 13:57] LABS: Basophils Percent Auto 0.5 % (0-2); Eosinophils Absolute Auto 0.2 X10*3/uL (0.0-0.4); Eosinophils Percent Auto 2.9 % (0-4); Hematocrit 39.5 % (37-47); Hemoglobin 12.8 g/dl (12.0-16.0); Imm Gran Abs Auto 0.04 X10*3/uL (0.00-0.03); Imm Gran Pct Auto 0.5 % (0.0-0.4); Lymphocytes Absolute Auto 2.7 X10*3/uL (1.2-4.9); Lymphocytes Percent Auto 34.5 % (20-40); Mean Corpuscular HGB Conc 32.4 g/dl (31.0-35.0); Mean Corpuscular Hemoglobin 27.2 pg (27.0-33.0); Mean Platelet Volume 11.2 fL (9.4-12.3); Monocytes Absolute Auto 0.9 X10*3/uL (0.1-1.2); Monocytes Percent Auto 12.1 % (2-11); Neutrophils Absolute Auto 3.8 X10*3/uL (2.0-8.3); Neutrophils Percent Auto 49.5 % (45-73); Platelet Count 352 X10*3/uL (160-400); Red Cell Distribution Width 13.4 % (11.0-16.0); White Blood Count 7.7 X10*3/uL (4.8-10.8)
[2021-09-02 14:33] LABS: Alanine Aminotransferase 13 U/L (0-31); Albumin Level 4.5 g/dL (3.5-5.0); Alkaline Phosphatase 75 U/L (39-117); Anion Gap 14 (12-20); Aspartate Amino Transferase 16 U/L (5-31); Bilirubin Total 0.4 mg/dL (0.0-1.0); Blood Urea Nitrogen 18 mg/dL (9-16); Calcium 9.4 mg/dL (8.4-10.2); Carbon Dioxide 25 mmol/L (22-29); Chloride 106 mmol/L (96-108); Cholesterol 199 mg/dL; Estimated Glomerular Filt Rate > 60; Glucose Fasting 51 mg/dL (60-99); HDL Cholesterol 62 mg/dL; LDL Cholesterol Calculated 115 mg/dl; Potassium 4.6 mmol/L (3.3-5.1); Sodium 140 mmol/L (135-145); Total Protein 7.8 g/dL (6.5-8.0); Triglycerides 111 mg/dL
[2021-09-02 14:46] LABS: TSH reflex Free T4 2.26 uIU/mL (0.32-4.0)
== END 2021-09-02 11:02 | disposition home or self-care (01) ==
LOC: HO.HMGCLDS 11:01
PROVIDERS: PCP Nurse Practitioner Family; Visit Provider Nurse Practitioner Family
DX: Z01.419 Encounter for gynecological examination (general) (routine) without abnormal findings (principal); F23 Brief psychotic disorder; F41.1 Generalized anxiety disorder; F17.210 Nicotine dependence, cigarettes, uncomplicated; Z30.42 Encounter for surveillance of injectable contraceptive
CPT/HCPCS: 36415; 80053; 80061; 84443; 85025; 96372; 99202

== ENCOUNTER 2021-09-02 15:26 | Outpatient (REF) | payer OTHER, SELFPAY ==
[2021-09-05 01:36] LABS: HPV mRNA E6/E7 rflx Not Detected (Not Detected)
== END 2021-09-02 15:27 | disposition home or self-care (01) ==
LOC: HO.LAB 15:26
PROVIDERS: Visit Provider Advanced Practice Midwife
DX: Z01.419 Encounter for gynecological examination (general) (routine) without abnormal findings (principal)
CPT/HCPCS: 87624; 88142

== ENCOUNTER → 2021-11-19 15:18 | Outpatient (BNVA) | payer OTHER, SELFPAY | PROVIDERS: PCP Nurse Practitioner Family; Visit Provider Advanced Practice Midwife | DX: Z30.42 Encounter for surveillance of injectable contraceptive (principal) | CPT/HCPCS: 96372; 99211 ==

== ENCOUNTER → 2022-02-10 14:54 | Outpatient (BNVA) | payer OTHER, SELFPAY | PROVIDERS: PCP Nurse Practitioner Family; Visit Provider Advanced Practice Midwife | DX: Z30.42 Encounter for surveillance of injectable contraceptive (principal) | CPT/HCPCS: 96372; 99211 ==

== ENCOUNTER 2022-03-29 13:55 | Outpatient (REF) | payer OTHER, SELFPAY ==
--- NOTE | ~2022-03-29 | XR_ITS ---
EXAMINATION: XR CHEST CLINICAL INFORMATION: Chronic pulmonary edema COMPARISON: Chest radiograph 06/26/2018 TECHNIQUE: 2 views of the chest were obtained. FINDINGS: Previously seen right-sided pneumonia in 2018 has cleared. The heart and pulmonary vessels appear normal. There is no evidence of CHF. No pleural effusions are seen. Some vague density overlies the right apex which may be related to the patient's hair. XR/XR chest 2V IMPRESSION: No acute intrathoracic disease.
[2022-03-29 16:33] LABS: MANUAL DIFF FLAG NO
[2022-03-29 16:39] LABS: Basophils Absolute Auto 0.1 X10*3/uL (0.0-0.2); Basophils Percent Auto 0.6 % (0-2); Eosinophils Absolute Auto 0.5 X10*3/uL (0.0-0.4); Eosinophils Percent Auto 4.6 % (0-4); Hematocrit 37.9 % (37.0-47.0); Imm Gran Abs Auto 0.04 X10*3/uL (0.00-0.03); Imm Gran Pct Auto 0.4 % (0.0-0.4); Lymphocytes Absolute Auto 2.5 X10*3/uL (1.2-4.9); Lymphocytes Percent Auto 24.5 % (20-40); Mean Corpuscular HGB Conc 31.7 g/dl (31.0-35.0); Mean Corpuscular Hemoglobin 25.9 pg (27.0-33.0); Mean Corpuscular Volume 81.9 fL (80.0-98.0); Mean Platelet Volume 11.5 fL (9.4-12.3); Monocytes Absolute Auto 0.5 X10*3/uL (0.1-1.2); Monocytes Percent Auto 4.9 % (2-11); Neutrophils Absolute Auto 6.7 x10*3/uL (2.0-8.3); Platelet Count 340 X10*3/uL (160-400); Red Blood Count 4.63 X10*6/uL (4.20-5.50); Red Cell Distribution Width 13.8 % (11.0-16.0); White Blood Count 10.2 X10*3/uL (4.8-10.8)
[2022-03-29 16:47] LABS: Alanine Aminotransferase 11 U/L (0-31); Albumin Level 4.2 g/dL (3.5-5.0); Alkaline Phosphatase 81 U/L (39-117); Anion Gap 13 (12-20); Aspartate Amino Transferase 12 U/L (5-31); Bilirubin Total 0.7 mg/dL (0.0-1.0); Blood Urea Nitrogen 17 mg/dL (9-16); Calcium 9.7 mg/dL (8.4-10.2); Carbon Dioxide 23 mmol/L (22-29); Chloride 107 mmol/L (96-108); Estimated Glomerular Filt Rate 34; Glucose Random 117 mg/dL (60-115); Sodium 139 mmol/L (135-145); Total Protein 7.9 g/dL (6.5-8.0)
[2022-03-29 17:08] LABS: TSH reflex Free T4 0.49 uIU/mL (0.32-4.0)
== END 2022-03-29 13:56 | disposition home or self-care (01) ==
LOC: HO.HMGCX 13:55
PROVIDERS: PCP Nurse Practitioner Family; Visit Provider Nurse Practitioner Family
DX: J81.1 Chronic pulmonary edema (principal); J96.00 Acute respiratory failure, unspecified whether with hypoxia or hypercapnia; I42.9 Cardiomyopathy, unspecified; R45.851 Suicidal ideations; R79.89 Other specified abnormal findings of blood chemistry; T40.411A Poisoning by fentanyl or fentanyl analogs, accidental (unintentional), initial encounter; E87.2 Acidosis
CPT/HCPCS: 36415; 71046; 80053; 84443; 85025

== ENCOUNTER 2022-04-26 14:25 | Outpatient (REF) | payer OTHER, SELFPAY ==
[2022-04-26 16:41] LABS: Alanine Aminotransferase 18 U/L (0-31); Albumin Level 4.2 g/dL (3.5-5.0); Alkaline Phosphatase 77 U/L (39-117); Anion Gap 15 (12-20); Aspartate Amino Transferase 12 U/L (5-31); Bilirubin Total 0.7 mg/dL (0.0-1.0); Blood Urea Nitrogen 15 mg/dL (9-16); Calcium 9.2 mg/dL (8.4-10.2); Carbon Dioxide 22 mmol/L (22-29); Chloride 107 mmol/L (96-108); Estimated Glomerular Filt Rate 56; Glucose Random 119 mg/dL (60-115); Sodium 140 mmol/L (135-145); Total Protein 7.4 g/dL (6.5-8.0)
== END 2022-04-26 14:26 | disposition home or self-care (01) ==
LOC: HO.HMGCLDS 14:25
PROVIDERS: PCP Nurse Practitioner Family; Visit Provider Nurse Practitioner Family
DX: R79.89 Other specified abnormal findings of blood chemistry (principal)
CPT/HCPCS: 36415; 80053

== ENCOUNTER → 2022-05-12 14:06 | Outpatient (BNVA) | payer OTHER, SELFPAY | PROVIDERS: PCP Nurse Practitioner Family; Referring Provider Nurse Practitioner Family; Visit Provider Internal Medicine Cardiovascular Disease | DX: I42.9 Cardiomyopathy, unspecified (principal) | CPT/HCPCS: 93005; 99202 ==